=== PATIENT | male | born 1980 | race Two or more races ===

== ENCOUNTER 2019-09-20 11:03 | Inpatient (IN) | payer SELFPAY ==
[~2019-09-20] VITALS: Ht 172.7 cm; Wt 90.7 kg
[2019-09-20] MEDS ORDERED: IV NORMAL SALINE 1000ML BAG 1,000 ML IV SCH (12:32)
[2019-09-20] MEDS ORDERED: FAMOTIDINE 20 MG/2 ML VIAL IVP ONE (12:45)
[2019-09-20] MEDS ORDERED: KETOROLAC 30 MG/ML VIAL. IV ONE (12:45)
[2019-09-20 12:51] LABS: BASO % 1 % (0-3); EOS % 1 % (0-3); HEMATOCRIT 35.4 % (39.0-53.0); HEMOGLOBIN 11.9 g/dL (13.0-17.5); LYMPH # 1.1 x10^3/uL (1.0-4.8); LYMPH % 16 % (24-48); MEAN CORPUSCULAR HEMOGLOBIN 28 pg (25-35); MEAN CORPUSCULAR HGB CONC 34 g/dL (31-37); MEAN CORPUSCULAR VOLUME 82 fL (79-100); MONO # 0.6 x10^3/uL (0.0-1.1); MONO % 8 % (0-9); NEUT # 5.1 x10^3/uL (1.8-7.7); NEUT % 75 % (31-73); PLATELET COUNT 307 x10^3/uL (140-400); RED CELL DISTRIBUTION WIDTH 12.4 % (11.5-14.5); WHITE BLOOD COUNT 6.9 x10^3/uL (4.0-11.0)
[2019-09-20 12:51] LABS: BILIRUBIN,URINE NEGATIVE (NEG); CLARITY,URINE CLEAR; COLOR,URINE AMBER; NITRITE,URINE NEGATIVE (NEG); PROTEIN,URINE NEGATIVE (NEG-TRACE)
[2019-09-20 13:02] LABS: CALCIUM 9.2 mg/dL (8.5-10.1); CREATININE 0.8 mg/dL (0.7-1.3); GFR 108.8; POTASSIUM 3.9 mmol/L (3.5-5.1)
[2019-09-20 13:08] LABS: ALBUMIN 3.4 g/dL (3.4-5.0); ALBUMIN/GLOBULIN RATIO 0.8 (1.0-1.7); TOTAL BILIRUBIN 0.5 mg/dL (0.2-1.0); TOTAL PROTEIN 7.7 g/dL (6.4-8.2)
[2019-09-20 13:09] LABS: BACTERIA,URINE 0 /HPF (0-FEW); RBC,URINE 0 /HPF (0-2); SQUAMOUS EPITHELIAL CELL,UR OCC /LPF; WBC,URINE OCC /HPF (0-4)
[2019-09-20] MEDS ORDERED: fentaNYL PF VIAL 100 MCG/2 ML VIAL IVP ONE (13:15)
--- NOTE | 2019-09-20 13:20 | PHYS DOC ---
Past Medical History Past Medical History: No Pertinent History Past Surgical History: No Surgical History Alcohol Use: None Drug Use: None Adult General Chief Complaint Chief Complaint: ABDOMINAL PAIN HPI HPI Patient is a 39 year old male patient without medical problem who presents with complaining of abdominal pain. Patient complaining of left upper quadrant pain as a constant and sharp pain for the last 4 days getting worse with movement and taking deep breaths. Patient rated his pain 10 over 10 and complaining of one episode of nausea yesterday without vomiting. Patient denies constipation and diarrhea, urinary symptoms, fever and chills, shortness of breath, injury, history of the same problem. Patient complaining of cough and nasal congestion for the last 4 days. Review of Systems Review of Systems Constitutional: Denies fever or chills [] Eyes: Denies change in visual acuity, redness, or eye pain [] HENT: Denies nasal congestion or sore throat [] Respiratory: Denies cough or shortness of breath [] Cardiovascular: No additional information not addressed in HPI [] GI: Reports abdominal pain, nausea, denies vomiting, bloody stools or diarrhea [] : Denies dysuria or hematuria [] Musculoskeletal: Denies back pain or joint pain [] Integument: Denies rash or skin lesions [] Neurologic: Denies headache, focal weakness or sensory changes [] Endocrine: Denies polyuria or polydipsia [] All other systems were reviewed and found to be within normal limits, except as documented in this note. Current Medications Current Medications Current Medications Medications (Trade) Dose Ordered Sig/Dali Start Time Stop Time Status Last Admin Dose Admin Famotidine (Pepcid Vial) 20 mg 1X ONCE 09/20/19 12:45 09/20/19 12:46 DC 09/20/19 13:01 20 MG Fentanyl Citrate (Fentanyl 2ml Vial) 50 mcg 1X ONCE 09/20/19 13:15 09/20/19 13:16 DC 09/20/19 13:36 50 MCG Ketorolac Tromethamine (Toradol 30mg Vial) 30 mg 1X ONCE 09/20/19 12:45 09/20/19 13:10 DC Sodium Chloride 1,000 ml @ 1,000 mls/hr Q1H 09/20/19 12:32 09/20/19 13:31 DC 09/20/19 13:00 1,000 MLS/HR Allergies Allergies Allergies Coded Allergies Type Severity Reaction Last Updated Verified No Known Drug Allergies 09/20/19 No Physical Exam Physical Exam Constitutional: Well developed, well nourished, mild distress, non-toxic appearance. [] HENT: Normocephalic, atraumatic, moist oral mucosa Eyes: PERRLA, EOMI, conjunctiva normal, no discharge. [] Neck: Normal range of motion, no tenderness, supple, no stridor. [] Cardiovascular:Heart rate regular rhythm, no murmur [] Lungs & Thorax: Bilateral breath sounds clear to auscultation [] Abdomen: Bowel sounds normal, soft, left upper quadrant tenderness and rebound tenderness with palpated mass in left side of abdomen. Skin: Warm, dry, no erythema, no rash. [] Back: No tenderness, no CVA tenderness. [] Extremities: No tenderness, no cyanosis, no clubbing, ROM intact, no edema. [] Neurologic: Alert and oriented X 3, no focal deficits noted. [] Psychologic: Affect normal, judgement normal, mood normal. [] Current Patient Data Vital Signs Vital Signs Date Time Temp Pulse Resp B/P (MAP) Pulse Ox O2 Delivery O2 Flow Rate FiO2 09/20/19 13:01 83 16 128/67 (87) 99 Room Air 09/20/19 11:57 98.3 98.3 Lab Values Laboratory Tests Test 09/20/19 12:25 09/20/19 12:41 White Blood Count 6.9 x10^3/uL (4.0-11.0) Red Blood Count 4.30 x10^6/uL (4.30-5.70) Hemoglobin 11.9 g/dL (13.0-17.5) L Hematocrit 35.4 % (39.0-53.0) L Mean Corpuscular Volume 82 fL (79-100) Mean Corpuscular Hemoglobin 28 pg (25-35) Mean Corpuscular Hemoglobin Concent 34 g/dL (31-37) Red Cell Distribution Width 12.4 % (11.5-14.5) Platelet Count 307 x10^3/uL (140-400) Neutrophils (%) (Auto) 75 % (31-73) H Lymphocytes (%) (Auto) 16 % (24-48) L Monocytes (%) (Auto) 8 % (0-9) Eosinophils (%) (Auto) 1 % (0-3) Basophils (%) (Auto) 1 % (0-3) Neutrophils # (Auto) 5.1 x10^3/uL (1.8-7.7) Lymphocytes # (Auto) 1.1 x10^3/uL (1.0-4.8) Monocytes # (Auto) 0.6 x10^3/uL (0.0-1.1) Eosinophils # (Auto) 0.0 x10^3/uL (0.0-0.7) Basophils # (Auto) 0.0 x10^3/uL (0.0-0.2) Sodium Level 141 mmol/L (136-145) Potassium Level 3.9 mmol/L (3.5-5.1) Chloride Level 102 mmol/L (98-107) Carbon Dioxide Level 31 mmol/L (21-32) Anion Gap 8 (6-14) Blood Urea Nitrogen 10 mg/dL (8-26) Creatinine 0.8 mg/dL (0.7-1.3) Estimated GFR (Cockcroft-Gault) 108.8 BUN/Creatinine Ratio 13 (6-20) Glucose Level 111 mg/dL (70-99) H Calcium Level 9.2 mg/dL (8.5-10.1) Total Bilirubin 0.5 mg/dL (0.2-1.0) Aspartate Amino Transferase (AST) 28 U/L (15-37) Alanine Aminotransferase (ALT) 54 U/L (16-63) Alkaline Phosphatase 95 U/L (46-116) Total Protein 7.7 g/dL (6.4-8.2) Albumin 3.4 g/dL (3.4-5.0) Albumin/Globulin Ratio 0.8 (1.0-1.7) L Lipase 64 U/L (73-393) L Urine Collection Type Void Urine Color Ellie Urine Clarity Clear Urine pH 6.0 Urine Specific Morris >=1.030 Urine Protein Negative mg/dL (NEG-TRACE) Urine Glucose (UA) Negative mg/dL (NEG) Urine Ketones (Stick) Trace mg/dL (NEG) Urine Blood Negative (NEG) Urine Nitrite Negative (NEG) Urine Bilirubin Negative (NEG) Urine Urobilinogen Dipstick 1.0 mg/dL (0.2 mg/dL) Urine Leukocyte Esterase Negative (NEG) Urine RBC 0 /HPF (0-2) Urine WBC Occ /HPF (0-4) Urine Squamous Epithelial Cells Occ /LPF Urine Bacteria 0 /HPF (0-FEW) Urine Mucus Mod /LPF Laboratory Tests 09/20/19 12:25 Laboratory Tests 09/20/19 12:25 EKG EKG [] Radiology/Procedures Radiology/Procedures [][facility] [address] [place] [address] IMAGING REPORT Signed PATIENT: RENU ALCARAZACCOUNT: [id number] : 1980 LOCATION: ER AGE: 39 SEX: M EXAM STATUS: REG ER ORD. PHYSICIAN: TREY HUERTA MD REASON: left upper quadrant pain PROCEDURE: CT ABDOMEN PELVIS WO CONTRAST CT STUDY OF THE ABDOMEN AND PELVIS WITHOUT CONTRAST CLINICAL INDICATIONS: Left upper quadrant abdominal pain. TECHNIQUE: Noncontrast helical CT scanning of the abdomen and pelvis was performed. Without contrast, the sensitivity to detect organ pathology and GI tract pathology is decreased. PQRS compliance Statement One or more of the following individualized dose reduction techniques were utilized for this study: 1. Automated exposure control 2. Adjustment of the mA and/or kV according to patient size 3. Use of iterative reconstruction technique COMPARISON: None available. FINDINGS: The liver and spleen and pancreas are unremarkable on this noncontrast study. The gallbladder is nondistended. No extrahepatic biliary ductal dilatation is seen. No adrenal mass is evident. Both kidneys are unremarkable on this noncontrast study and no hydronephrosis or hydroureter or ureteral stone is seen. Urinary bladder is nondistended. No focal aneurysmal dilatation of the abdominal aorta is seen. No enlarged retroperitoneal or pelvic lymphadenopathy is evident. The appendix is normal. The terminal ileum is unremarkable. No small bowel obstruction is seen. There is a large soft tissue mass of the left mid abdomen which displaces bowel loops around it. This mass has heterogeneous enhancement with multiple areas of cyst formation or cystic necrosis within it. The mass measures 17.5 cm transversely and 11.1 cm in AP dimension and 16.6 cm in vertical dimension. No free air or free fluid or mesenteric edema is seen. No lung base consolidation is evident. No lytic process is seen. IMPRESSION: Large intra-abdominal soft tissue mass of the left mid abdomen measuring up to 17.5 cm in greatest dimension consistent with a neoplastic process. No bowel obstruction. Electronically signed by: Ambar Gray MD (09/20/2019 1:17 PM) [facility] DICTATED and SIGNED BY: AMBAR GRAY MD DATE: 09/20/19 1319 Course & Med Decision Making Course & Med Decision Making Pertinent Labs and Imaging studies reviewed. (See chart for details) Evaluation of patient in ER showed 39-year-old male patient without medical problems presented to ER with complaining of left-sided abdominal pain for 4 days without other symptoms. Patient had tenderness and rebound tenderness of left upper quadrant with palpable. MS. CT showed large intra-abdominal mass with possible malignancy. Labs was unremarkable except for mild anemia. On-call surgeon Dr. Brown was informed at 1405. Patient and his informed about test results and plan of care.Patient requiring admission for further evaluation and treatment. Discussed with Dr. Fisher who is in agreement with admission. Discussed findings and plan with patient and family, who acknowledge understanding and agreement. Dragon Disclaimer Dragon Disclaimer This electronic medical record was generated, in whole or in part, using a voice recognition dictation system. Departure Departure Impression: Primary Impression: Abdominal mass, left upper quadrant Additional Impression: Anemia Disposition: ADMITTED INPATIENT (at 1500) Admitting Physician: CODY (Dr Fisher accepted admission at 1500) Condition: IMPROVED Referrals: NO PCP (PCP) Problem Qualifiers Additional Impression: Anemia Anemia type: unspecified type Qualified Codes: D64.9 - Anemia, unspecified TREY HUERTA MD Sep 20, 2019 13:20
[2019-09-20 14:30] VITALS: BP 142/77
[2019-09-20] MEDS ORDERED: ONDANSETRON PF 4 MG/2 ML VIAL. IV PRN (15:00)
[2019-09-20] MEDS: IV NORMAL SALINE 1000ML BAG 1,000 ML IV SCH ×2 (16:09→21:21)
[2019-09-20 19:30] VITALS: BP 131/81
--- NOTE | 2019-09-20 20:04 | HP ---
ADMIT DATE: 09/20/2019 CHIEF COMPLAINT: Abdominal pain. HISTORY OF PRESENT ILLNESS: The patient is a pleasant middle-aged healthy male who presents with abdominal pain, rates as a 7/10, it has been occurring for several days. He denies any weight loss. Denies any colon cancer in the family. He tried taking some [id number] meds, but that did not work. Food makes it worse. We did some imaging. He has got a 17-cm mass suspicious for a neoplasm. I discussed the case with ER physician. We are going to admit the patient and consult GI and General Surgery. PAST MEDICAL HISTORY: Benign. ALLERGIES: None. FAMILY HISTORY: Denies any family history of colon cancer. SOCIAL HISTORY: Does not drink, smoke, or take drugs. MEDICATIONS: Reviewed, please refer to the MRAD. REVIEW OF SYSTEMS: GENERAL: No history of weight change, weakness or fevers. SKIN: No bruising, hair changes or rashes. EYES: No blurred, double or loss of vision. NOSE AND THROAT: No history of nosebleeds, hoarseness or sore throat. HEART: No history of palpitations, chest pain or shortness of breath on exertion. LUNGS: Denies cough, hemoptysis, wheezing or shortness of breath. GASTROINTESTINAL: He complains of abdominal pain. GENITOURINARY: No history of frequency, urgency, hesitancy or nocturia. NEUROLOGIC: Denies history of numbness, tingling, tremor or weakness. PSYCHIATRIC: No history of panic, anxiety or depression. ENDOCRINE: No history of heat or cold intolerance, polyuria or polydipsia. EXTREMITIES: Denies muscle weakness, joint pain, pain on walking or stiffness. PHYSICAL EXAMINATION: VITALS: Within normal limits and are stable. GENERAL: No apparent distress. Alert and oriented. HEENT: Normal cephalic atraumatic, external auditory canals are patent EYES: Extraocular muscles are intact, pupils are equally round and reactive to light and accommodation MUSCULOSKELETAL: Well developed, well nourished, good range of motion ENDOCRINE: No thyromegaly was palpated LYMPHATICS: No cervical chain or axillary nodes were noted HEMATOPOIETIC: No bruising NECK: Supple, no JVD, no thyromegaly was noted. LUNGS: Clear to auscultation in all lung briggs without rhonchi or wheezing. HEART: RRR, S1, S2 present. Peripheral pulses intact, no obvious murmurs were noted. ABDOMEN: He has got some slight tenderness in the left upper quadrant. EXTREMITIES: Without any cyanosis, clubbing, or edema. Pedal pulses intact, Homans sign is negative. NEUROLOGIC: Normal speech, normal tone. A & O x3, moves all extremities, no obvious focal deficits. PSYCHIATRIC: Normal affect, normal mood. Stable. SKIN: No ulcerations or rashes, good skin turgor, no jaundice. VASCULAR: Good capillary refill, neurovascular bundle appears to be intact. LABORATORY DATA: Hemoglobin is 11.9. Electrolytes are normal. Urinalysis is negative. IMAGING STUDIES: CT of the abdomen shows a 17-cm mass suspicious for neoplasm. ASSESSMENT AND PLAN: The patient will be admitted. We will consult Dr. Brown. Check a CEA level. Consult Dr. Baldwin. Home meds, DVT prophylaxis. Full code. IV fluids, n.p.o. after midnight. ANJALI CORONADO DO DR: JUSTIN/tone JOB#: [id number] / [id number]
[2019-09-20] MEDS: fentaNYL PF VIAL 100 MCG/2 ML VIAL IV PRN (21:20)
[2019-09-20 23:30] VITALS: BP 106/51
[2019-09-21] VITALS (10 sets, daily range): BP systolic 109–122; BP diastolic 59–73
[2019-09-21] MEDS: fentaNYL PF VIAL 100 MCG/2 ML VIAL IV PRN (02:03)
[2019-09-21] MEDS: IV NORMAL SALINE 1000ML BAG 1,000 ML IV SCH ×2 (04:45→11:00)
[2019-09-21] MEDS: fentaNYL PF VIAL 100 MCG/2 ML VIAL IVP PRN ×4 (06:13→20:07)
--- NOTE | 2019-09-21 08:22 | PDOC2 ---
CONSULT Date of Consult Date of Consult DATE: 09/21/19 TIME: 08:18 Reason for Consult Reason for Consult: abdominal mass Referring Physician Referring Physician: er Identification/Chief Complaint Chief Complaint abdominal pain Source Source: Caregiver, Chart review History of Present Illness Reason for Visit: Pt spouse assists in interpretation for patient. Developed LUQ pain about 5 days ago, yesterday it became significantly worse. Denies n/v, no diarrhea. Eating normally Past Medical History Past Medical History no pertinent hx Past Surgical History Past Surgical History: No pertinent history Family History Family History: Other (no pertinent hx ) Social History No ALCOHOL: none Drugs: None Lives: with Family Current Problem List Problem List Problems Medical Problems: (1) Abdominal mass, left upper quadrant Status: Acute (2) Anemia Status: Acute Current Medications Current Medications Current Medications Sodium Chloride 1,000 ml @ 1,000 mls/hr Q1H IV Last administered on 09/20/19at 13:00; Start 09/20/19 at 12:32; Stop 09/20/19 at 13:31; Status DC Famotidine (Pepcid Vial) 20 mg 1X ONCE IVP Last administered on 09/20/19at 13:01; Start 09/20/19 at 12:45; Stop 09/20/19 at 12:46; Status DC Ketorolac Tromethamine (Toradol 30mg Vial) 30 mg 1X ONCE IV ; Start 09/20/19 at 12:45; Stop 09/20/19 at 13:10; Status DC Fentanyl Citrate (Fentanyl 2ml Vial) 50 mcg 1X ONCE IVP Last administered on 09/20/19at 13:36; Start 09/20/19 at 13:15; Stop 09/20/19 at 13:16; Status DC Ondansetron HCl (Zofran) 4 mg PRN Q8HRS PRN IV NAUSEA/VOMITING; Start 09/20/19 at 15:00; Stop 09/20/19 at 22:00; Status DC Fentanyl Citrate (Fentanyl 2ml Vial) 50 mcg PRN Q2HRS PRN IV PAIN Last administered on 09/21/19at 02:03; Start 09/20/19 at 15:00; Stop 09/21/19 at 02:20; Status DC Sodium Chloride 1,000 ml @ 150 mls/hr Q6H40M IV Last administered on 09/21/19at 04:45; Start 09/20/19 at 15:00; Stop 09/21/19 at 14:59 Fentanyl Citrate (Fentanyl 2ml Vial) 75 mcg PRN Q2HR PRN IVP MODERATE PAIN 4-6 Last administered on 09/21/19at 06:13; Start 09/21/19 at 02:30 Fentanyl Citrate (Fentanyl 2ml Vial) 100 mcg PRN Q2HR PRN IVP SEVERE PAIN 7-10; Start 09/21/19 at 02:30 Allergies Allergies: Coded Allergies: No Known Drug Allergies (Unverified , 09/20/19) ROS General: YES: Night Sweats; No: Other (fevers ) PSYCHOLOGICAL ROS: No: Anxiety, Depression Eyes: No Blurry vision, No Double vision HEENT: No: Heacaches Hematological and Lymphatic: No: Bleeding Problems, Blood Clots Respiratory: No: Cough, Shortness of breath Cardiovascular: No Chest Pain, No Palpitations Gastrointestinal: Yes Other (see hpi) Genitourinary: No Dysuria, No Hematuria Musculoskeletal: No Joint Pain, No Muscle Pain Neurological: No Impaired Coord/balance, No Numbness/Tingling Skin: No Pruritus, No Rash Physical Exam General: Alert, Oriented X3, Cooperative, No acute distress HEENT: PERRLA, Mucous membr. moist/pink Lungs: Clear to auscultation, Normal air movement Heart: Regular rate, Normal S1, Normal S2, No murmurs Abdomen: Soft, Other (LUQ TTP, firmness to Left abdomen on exam) Extremities: No clubbing, No cyanosis Skin: No rashes, No breakdown Neuro: Normal gait, Normal speech Psych/Mental Status: Mental status NL, Mood NL MUSCULOSKELETAL: No deformity, No swelling Vitals VITALS Vital Signs Date Time Temp Pulse Resp B/P (MAP) Pulse Ox O2 Delivery O2 Flow Rate FiO2 09/21/19 06:55 Room Air 09/21/19 03:18 99.0 90 18 113/64 (80) 96 99.0 Labs Labs Laboratory Tests Test 09/20/19 12:25 09/20/19 12:41 White Blood Count 6.9 x10^3/uL (4.0-11.0) Red Blood Count 4.30 x10^6/uL (4.30-5.70) Hemoglobin 11.9 g/dL (13.0-17.5) Hematocrit 35.4 % (39.0-53.0) Mean Corpuscular Volume 82 fL (79-100) Mean Corpuscular Hemoglobin 28 pg (25-35) Mean Corpuscular Hemoglobin Concent 34 g/dL (31-37) Red Cell Distribution Width 12.4 % (11.5-14.5) Platelet Count 307 x10^3/uL (140-400) Neutrophils (%) (Auto) 75 % (31-73) Lymphocytes (%) (Auto) 16 % (24-48) Monocytes (%) (Auto) 8 % (0-9) Eosinophils (%) (Auto) 1 % (0-3) Basophils (%) (Auto) 1 % (0-3) Neutrophils # (Auto) 5.1 x10^3/uL (1.8-7.7) Lymphocytes # (Auto) 1.1 x10^3/uL (1.0-4.8) Monocytes # (Auto) 0.6 x10^3/uL (0.0-1.1) Eosinophils # (Auto) 0.0 x10^3/uL (0.0-0.7) Basophils # (Auto) 0.0 x10^3/uL (0.0-0.2) Sodium Level 141 mmol/L (136-145) Potassium Level 3.9 mmol/L (3.5-5.1) Chloride Level 102 mmol/L (98-107) Carbon Dioxide Level 31 mmol/L (21-32) Anion Gap 8 (6-14) Blood Urea Nitrogen 10 mg/dL (8-26) Creatinine 0.8 mg/dL (0.7-1.3) Estimated GFR (Cockcroft-Gault) 108.8 BUN/Creatinine Ratio 13 (6-20) Glucose Level 111 mg/dL (70-99) Calcium Level 9.2 mg/dL (8.5-10.1) Total Bilirubin 0.5 mg/dL (0.2-1.0) Aspartate Amino Transf (AST/SGOT) 28 U/L (15-37) Alanine Aminotransferase (ALT/SGPT) 54 U/L (16-63) Alkaline Phosphatase 95 U/L (46-116) Total Protein 7.7 g/dL (6.4-8.2) Albumin 3.4 g/dL (3.4-5.0) Albumin/Globulin Ratio 0.8 (1.0-1.7) Lipase 64 U/L (73-393) Urine Collection Type Void Urine Color Ellie Urine Clarity Clear Urine pH 6.0 Urine Specific [place] >=1.030 Urine Protein Negative mg/dL (NEG-TRACE) Urine Glucose (UA) Negative mg/dL (NEG) Urine Ketones (Stick) Trace mg/dL (NEG) Urine Blood Negative (NEG) Urine Nitrite Negative (NEG) Urine Bilirubin Negative (NEG) Urine Urobilinogen Dipstick 1.0 mg/dL (0.2 mg/dL) Urine Leukocyte Esterase Negative (NEG) Urine RBC 0 /HPF (0-2) Urine WBC Occ /HPF (0-4) Urine Squamous Epithelial Cells Occ /LPF Urine Bacteria 0 /HPF (0-FEW) Urine Mucus Mod /LPF Laboratory Tests Test 09/20/19 12:25 09/20/19 12:41 White Blood Count 6.9 x10^3/uL (4.0-11.0) Red Blood Count 4.30 x10^6/uL (4.30-5.70) Hemoglobin 11.9 g/dL (13.0-17.5) Hematocrit 35.4 % (39.0-53.0) Mean Corpuscular Volume 82 fL (79-100) Mean Corpuscular Hemoglobin 28 pg (25-35) Mean Corpuscular Hemoglobin Concent 34 g/dL (31-37) Red Cell Distribution Width 12.4 % (11.5-14.5) Platelet Count 307 x10^3/uL (140-400) Neutrophils (%) (Auto) 75 % (31-73) Lymphocytes (%) (Auto) 16 % (24-48) Monocytes (%) (Auto) 8 % (0-9) Eosinophils (%) (Auto) 1 % (0-3) Basophils (%) (Auto) 1 % (0-3) Neutrophils # (Auto) 5.1 x10^3/uL (1.8-7.7) Lymphocytes # (Auto) 1.1 x10^3/uL (1.0-4.8) Monocytes # (Auto) 0.6 x10^3/uL (0.0-1.1) Eosinophils # (Auto) 0.0 x10^3/uL (0.0-0.7) Basophils # (Auto) 0.0 x10^3/uL (0.0-0.2) Sodium Level 141 mmol/L (136-145) Potassium Level 3.9 mmol/L (3.5-5.1) Chloride Level 102 mmol/L (98-107) Carbon Dioxide Level 31 mmol/L (21-32) Anion Gap 8 (6-14) Blood Urea Nitrogen 10 mg/dL (8-26) Creatinine 0.8 mg/dL (0.7-1.3) Estimated GFR (Cockcroft-Gault) 108.8 BUN/Creatinine Ratio 13 (6-20) Glucose Level 111 mg/dL (70-99) Calcium Level 9.2 mg/dL (8.5-10.1) Total Bilirubin 0.5 mg/dL (0.2-1.0) Aspartate Amino Transf (AST/SGOT) 28 U/L (15-37) Alanine Aminotransferase (ALT/SGPT) 54 U/L (16-63) Alkaline Phosphatase 95 U/L (46-116) Total Protein 7.7 g/dL (6.4-8.2) Albumin 3.4 g/dL (3.4-5.0) Albumin/Globulin Ratio 0.8 (1.0-1.7) Lipase 64 U/L (73-393) Urine Collection Type Void Urine Color Ellie Urine Clarity Clear Urine pH 6.0 Urine Specific [place] >=1.030 Urine Protein Negative mg/dL (NEG-TRACE) Urine Glucose (UA) Negative mg/dL (NEG) Urine Ketones (Stick) Trace mg/dL (NEG) Urine Blood Negative (NEG) Urine Nitrite Negative (NEG) Urine Bilirubin Negative (NEG) Urine Urobilinogen Dipstick 1.0 mg/dL (0.2 mg/dL) Urine Leukocyte Esterase Negative (NEG) Urine RBC 0 /HPF (0-2) Urine WBC Occ /HPF (0-4) Urine Squamous Epithelial Cells Occ /LPF Urine Bacteria 0 /HPF (0-FEW) Urine Mucus Mod /LPF Assessment/Plan Assessment/Plan abdominal mass will review with Dr Brown, likely require surgery today MACKENZIE JENKINS APRN Sep 21, 2019 08:22
--- NOTE | 2019-09-21 09:36 | PDOC2 ---
GI CONSULT Reason For Consult: ?colon ca HPI: HPI: 39 y/o Swedish-speaking male, translation by significant other in room. 1 month ago had some LUQ discomfort after moving a ladder, then developed a bruise in the mid abdomen. Was seen at a clinic and was told "it's okay." Pain resolved. Pain recurred yesterday after moving another ladder - much worse. Imaging shows mass in left abdomen. Oncology consult pending. Surgery has seen - ?to OR today. Denies fevers/sweats, reflux/heartburn, dysphagia, n/v, diarrhea, constipation, weight loss, change in appetite, and bleeding. No previous EGD or colonoscopy. No GB, liver, pancreas, or PUD history. No NSAIDs. PMH: PMH: denies FH: Family History: No pertinent hx (denies cancers) Social History: Smoke: No ALCOHOL: none Drugs: None ROS: GEN: Denies fevers, chills, sweats HEENT: Denies blurred vision, sore throat CV: Denies chest pain RESP: Denies shortness of air, cough GI: Per HPI : Denies hematuria, dysuria ENDO: Denies weight changes NEURO: Denies confusion, dizziness MSK: Denies weakness, joint pain/swelling SKIN: Denies jaundice, pruritus Vitals: Vitals: Vital Signs Date Time Temp Pulse Resp B/P (MAP) Pulse Ox O2 Delivery O2 Flow Rate FiO2 09/21/19 08:51 Room Air 09/21/19 07:00 97.8 83 16 121/73 (89) 97 97.8 Labs: Labs: Laboratory Tests Test 09/20/19 12:25 09/20/19 12:41 White Blood Count 6.9 x10^3/uL (4.0-11.0) Red Blood Count 4.30 x10^6/uL (4.30-5.70) Hemoglobin 11.9 g/dL (13.0-17.5) Hematocrit 35.4 % (39.0-53.0) Mean Corpuscular Volume 82 fL (79-100) Mean Corpuscular Hemoglobin 28 pg (25-35) Mean Corpuscular Hemoglobin Concent 34 g/dL (31-37) Red Cell Distribution Width 12.4 % (11.5-14.5) Platelet Count 307 x10^3/uL (140-400) Neutrophils (%) (Auto) 75 % (31-73) Lymphocytes (%) (Auto) 16 % (24-48) Monocytes (%) (Auto) 8 % (0-9) Eosinophils (%) (Auto) 1 % (0-3) Basophils (%) (Auto) 1 % (0-3) Neutrophils # (Auto) 5.1 x10^3/uL (1.8-7.7) Lymphocytes # (Auto) 1.1 x10^3/uL (1.0-4.8) Monocytes # (Auto) 0.6 x10^3/uL (0.0-1.1) Eosinophils # (Auto) 0.0 x10^3/uL (0.0-0.7) Basophils # (Auto) 0.0 x10^3/uL (0.0-0.2) Sodium Level 141 mmol/L (136-145) Potassium Level 3.9 mmol/L (3.5-5.1) Chloride Level 102 mmol/L (98-107) Carbon Dioxide Level 31 mmol/L (21-32) Anion Gap 8 (6-14) Blood Urea Nitrogen 10 mg/dL (8-26) Creatinine 0.8 mg/dL (0.7-1.3) Estimated GFR (Cockcroft-Gault) 108.8 BUN/Creatinine Ratio 13 (6-20) Glucose Level 111 mg/dL (70-99) Calcium Level 9.2 mg/dL (8.5-10.1) Total Bilirubin 0.5 mg/dL (0.2-1.0) Aspartate Amino Transf (AST/SGOT) 28 U/L (15-37) Alanine Aminotransferase (ALT/SGPT) 54 U/L (16-63) Alkaline Phosphatase 95 U/L (46-116) Total Protein 7.7 g/dL (6.4-8.2) Albumin 3.4 g/dL (3.4-5.0) Albumin/Globulin Ratio 0.8 (1.0-1.7) Lipase 64 U/L (73-393) Urine Collection Type Void Urine Color Ellie Urine Clarity Clear Urine pH 6.0 Urine Specific [place] >=1.030 Urine Protein Negative mg/dL (NEG-TRACE) Urine Glucose (UA) Negative mg/dL (NEG) Urine Ketones (Stick) Trace mg/dL (NEG) Urine Blood Negative (NEG) Urine Nitrite Negative (NEG) Urine Bilirubin Negative (NEG) Urine Urobilinogen Dipstick 1.0 mg/dL (0.2 mg/dL) Urine Leukocyte Esterase Negative (NEG) Urine RBC 0 /HPF (0-2) Urine WBC Occ /HPF (0-4) Urine Squamous Epithelial Cells Occ /LPF Urine Bacteria 0 /HPF (0-FEW) Urine Mucus Mod /LPF Allergies: Coded Allergies: No Known Drug Allergies (Unverified , 09/20/19) Medications: Current Medications Medications (Trade) Dose Ordered Sig/Dali Route PRN Reason Start Time Stop Time Status Last Admin Dose Admin Sodium Chloride 1,000 ml @ 1,000 mls/hr Q1H IV 09/20/19 12:32 09/20/19 13:31 DC 09/20/19 13:00 Famotidine (Pepcid Vial) 20 mg 1X ONCE IVP 09/20/19 12:45 09/20/19 12:46 DC 09/20/19 13:01 Fentanyl Citrate (Fentanyl 2ml Vial) 50 mcg 1X ONCE IVP 09/20/19 13:15 09/20/19 13:16 DC 09/20/19 13:36 Fentanyl Citrate (Fentanyl 2ml Vial) 50 mcg PRN Q2HRS PRN IV PAIN 09/20/19 15:00 09/21/19 02:20 DC 09/21/19 02:03 Sodium Chloride 1,000 ml @ 150 mls/hr Q6H40M IV 09/20/19 15:00 09/21/19 14:59 09/21/19 04:45 Fentanyl Citrate (Fentanyl 2ml Vial) 75 mcg PRN Q2HR PRN IVP MODERATE PAIN 4-6 09/21/19 02:30 09/21/19 06:13 Fentanyl Citrate (Fentanyl 2ml Vial) 100 mcg PRN Q2HR PRN IVP SEVERE PAIN 7-10 09/21/19 02:30 09/21/19 08:51 Imaging: Imaging: CT A/P IMPRESSION: Large intra-abdominal soft tissue mass of the left mid abdomen measuring up to 17.5 cm in greatest dimension consistent with a neoplastic process. No bowel obstruction. PE: GEN: NAD HEENT: Atraumatic, PERRL LUNGS: CTAB HEART: RRR ABD: NABS, some firmness over LUQ, discomfort there EXTREMITY: No edema SKIN: No rashes, no jaundice NEURO/PSYCH: A & O 3 A/P: A/P: LUQ pain Anemia Abdominal mass -- ?biopsy - ?plans for OR Will follow. KEVIN WILSON Sep 21, 2019 09:36
[2019-09-21] MEDS ORDERED: IV RINGERS,LACTATED 1000ML 1,000 ML IV SCH (09:48)
[2019-09-21] MEDS ORDERED: MORPHINE SULFATE 2 MG/ML VIAL. IV PRN ×2 (10:00→15:00)
[2019-09-21] MEDS ORDERED: PROCHLORPERAZINE 10 MG/2 ML VIAL. IV PRN (10:00)
[2019-09-21] MEDS ORDERED: ONDANSETRON PF 4 MG/2 ML VIAL. IV PRN ×2 (10:00→15:00)
[2019-09-21] MEDS ORDERED: fentaNYL PF VIAL 100 MCG/2 ML VIAL IV PRN ×2 (10:00)
--- NOTE | 2019-09-21 10:18 | PDOC ---
PROGRESS NOTES History of Present Illness History of Present Illness impression CT of the abdomen shows a 17-cm mass suspicious for neoplasm. Large intra- abdominal soft tissue mass of the left mid abdomen measuring up to 17.5 cm in greatest dimension consistent with a neoplastic process. No bowel obstruction. obesity dehydration PLAN: admitted. consult Dr. Brown. CEA level. Consult Dr. Baldwin. Home meds, DVT prophylaxis. Full code. IV fluids, 38 MIN PT EXAM, CHART REVIEW, > 50% OF TIME SPENT WITH EXAM, CHART REVIEW, PT CARE COORDINATION Operative Note dr brown Operative Note Date: 09/21/2019 Preoperative diagnosis abdominal mass Postoperative diagnosis same Procedure: Exploratory laparotomy with resection of large abdominal mass Surgeon: Kevin Specimen: Abdominal mass Dictation: Patient is a 39-year-old male is mated to the hospital with abdominal pain CT scan findings showed a large 17 x 20 cm mass within the abdomen Vitals Vitals Vital Signs Date Time Temp Pulse Resp B/P (MAP) Pulse Ox O2 Delivery O2 Flow Rate FiO2 09/21/19 08:51 Room Air 09/21/19 07:00 97.8 83 16 121/73 (89) 97 97.8 Physical Exam General: Alert, Oriented X3, Cooperative, moderate distress Heart: Regular rate, Normal S1, Normal S2, No murmurs Lungs: Clear Abdomen: Soft, Other (LUQ TTP, firmness to Left abdomen on exam) Extremities: No clubbing, No cyanosis Skin: No rashes, No breakdown Labs LABS Operative Note Date: 09/21/2019 Preoperative diagnosis abdominal mass Postoperative diagnosis same Procedure: Exploratory laparotomy with resection of large abdominal mass Surgeon: Kevin Specimen: Abdominal mass Dictation: Patient is a 39-year-old male is mated to the hospital with abdominal pain CT scan findings showed a large 17 x 20 cm mass within the abdomen. Procedure of exploratory laparotomy with resection mass was explained to the patient detail risk benefits were also discussed including bleeding infection injury to intra-abdominal contents possibly necessitating further operations alternatives to this procedure also discussed with the patient thr ough an grounds person seemed to understand and gave both verbal and written consent to have the procedure performed. Patient was taken to the operating room placed in supine position general anesthesia was initiated once patient was sleep and intubated his abdomen was prepped and draped usual sterile fashion using ChloraPrep. Midline incision was made from above the umbilicus to just above the pubic symphysis this is carried down through the subcutaneous tissues are cauterized hemostasis down to the fascia fashion was opened with electrocautery the peritoneum further open electrocautery exposing the abdominal contents. The large cystic mass encountered upon entering the abdomen. This appeared to be generated from between the transverse colon and stomach with o mentum over the top of it and the posterior aspect bordered by the mesentery of the colon. The mass was brought up into the wound upon bringing it up into the wound of the cystic portion rupture who is a lot of old blood approximately a liter worth that was aspirated from the abdomen the mass was then removed using the impact LigaSure to take down its attachments there did not appear to be any specific attachment to any bowel or colon was a very small attachment to the stomach but it did not appear to involve tumor. Once the mass was removed a portion was sent for frozen section. Abdomen was irrigated and suctioned dry and did not appear to be any more bleeding this appeared to be contained within the cystic mass. The liver was felt there were no masses within the liver stomach appeared to be normal the small bowel was run from ligament of Treitz to the cecum jaw appeared to be normal the colon appeared normal from the cecum to the sigmoid colon. The abdomen was then closed with a running oh looped PDS the gaines bcutaneous layer was closed with a running 3-0 Vicryl and the skin was approximate for septic and a Monocryl Mastisol Steri-Strips and 4 x 4's Medipore tape were applied. Patient was awakened and extubated in the operating room taken to recovery in stable condition all sponge instrument needle counts listed as correct estimated blood loss 1600 mL. RITCHIE BROWN MD Sep 21, 2019 14:52 CT STUDY OF THE ABDOMEN AND PELVIS WITHOUT CONTRAST CLINICAL INDICATIONS: Left upper quadrant abdominal pain. TECHNIQUE: Noncontrast helical CT scanning of the abdomen and pelvis was performed. Without contrast, the sensitivity to detect organ pathology and GI tract pathology is decreased. PQRS compliance Statement One or more of the following individualized dose reduction techniques were utilized for this study: 1. Automated exposure control 2. Adjustment of the mA and/or kV according to patient size 3. Use of iterative reconstruction technique COMPARISON: None available. FINDINGS: The liver and spleen and pancreas are unremarkable on this noncontrast study. The gallbladder is nondistended. No extrahepatic biliary ductal dilatation is seen. No adrenal mass is evident. Both kidneys are unremarkable on this noncontrast study and no hydronephrosis or hydroureter or ureteral stone is seen. Urinary bladder is nondistended. No focal aneurysmal dilatation of the abdominal aorta is seen. No enlarged retroperitoneal or pelvic lymphadenopathy is evident. The appendix is normal. The terminal ileum is unremarkable. No small bowel obstruction is seen. There is a large soft tissue mass of the left mid abdomen which displaces bowel loops around it. This mass has heterogeneous enhancement with multiple areas of cyst formation or cystic necrosis within it. The mass measures 17.5 cm transversely and 11.1 cm in AP dimension and 16.6 cm in vertical dimension. No free air or free fluid or mesenteric edema is seen. No lung base consolidation is evident. No lytic process is seen. IMPRESSION: Large intra-abdominal soft tissue mass of the left mid abdomen measuring up to 17.5 cm in greatest dimension consistent with a neoplastic process. No bowel obstruction. Electronically signed by: Ambar Gray MD (09/20/2019 1:17 PM) [facility] DICTATED and SIGNED BY: AMBAR GRAY MD Laboratory Tests Test 09/20/19 12:25 09/20/19 12:41 White Blood Count 6.9 x10^3/uL (4.0-11.0) Red Blood Count 4.30 x10^6/uL (4.30-5.70) Hemoglobin 11.9 g/dL (13.0-17.5) Hematocrit 35.4 % (39.0-53.0) Mean Corpuscular Volume 82 fL (79-100) Mean Corpuscular Hemoglobin 28 pg (25-35) Mean Corpuscular Hemoglobin Concent 34 g/dL (31-37) Red Cell Distribution Width 12.4 % (11.5-14.5) Platelet Count 307 x10^3/uL (140-400) Neutrophils (%) (Auto) 75 % (31-73) Lymphocytes (%) (Auto) 16 % (24-48) Monocytes (%) (Auto) 8 % (0-9) Eosinophils (%) (Auto) 1 % (0-3) Basophils (%) (Auto) 1 % (0-3) Neutrophils # (Auto) 5.1 x10^3/uL (1.8-7.7) Lymphocytes # (Auto) 1.1 x10^3/uL (1.0-4.8) Monocytes # (Auto) 0.6 x10^3/uL (0.0-1.1) Eosinophils # (Auto) 0.0 x10^3/uL (0.0-0.7) Basophils # (Auto) 0.0 x10^3/uL (0.0-0.2) Sodium Level 141 mmol/L (136-145) Potassium Level 3.9 mmol/L (3.5-5.1) Chloride Level 102 mmol/L (98-107) Carbon Dioxide Level 31 mmol/L (21-32) Anion Gap 8 (6-14) Blood Urea Nitrogen 10 mg/dL (8-26) Creatinine 0.8 mg/dL (0.7-1.3) Estimated GFR (Cockcroft-Gault) 108.8 BUN/Creatinine Ratio 13 (6-20) Glucose Level 111 mg/dL (70-99) Calcium Level 9.2 mg/dL (8.5-10.1) Total Bilirubin 0.5 mg/dL (0.2-1.0) Aspartate Amino Transf (AST/SGOT) 28 U/L (15-37) Alanine Aminotransferase (ALT/SGPT) 54 U/L (16-63) Alkaline Phosphatase 95 U/L (46-116) Total Protein 7.7 g/dL (6.4-8.2) Albumin 3.4 g/dL (3.4-5.0) Albumin/Globulin Ratio 0.8 (1.0-1.7) Lipase 64 U/L (73-393) Urine Collection Type Void Urine Color Ellie Urine Clarity Clear Urine pH 6.0 Urine Specific [place] >=1.030 Urine Protein Negative mg/dL (NEG-TRACE) Urine Glucose (UA) Negative mg/dL (NEG) Urine Ketones (Stick) Trace mg/dL (NEG) Urine Blood Negative (NEG) Urine Nitrite Negative (NEG) Urine Bilirubin Negative (NEG) Urine Urobilinogen Dipstick 1.0 mg/dL (0.2 mg/dL) Urine Leukocyte Esterase Negative (NEG) Urine RBC 0 /HPF (0-2) Urine WBC Occ /HPF (0-4) Urine Squamous Epithelial Cells Occ /LPF Urine Bacteria 0 /HPF (0-FEW) Urine Mucus Mod /LPF Assessment and Plan Assessmemt and Plan Problems Medical Problems: (1) Abdominal mass, left upper quadrant Status: Acute (2) Anemia Status: Acute Comment Review of Relevant I have reviewed the following items amee (where applicable) has been applied. Labs Laboratory Tests Test 09/20/19 12:25 09/20/19 12:41 White Blood Count 6.9 x10^3/uL (4.0-11.0) Red Blood Count 4.30 x10^6/uL (4.30-5.70) Hemoglobin 11.9 g/dL (13.0-17.5) Hematocrit 35.4 % (39.0-53.0) Mean Corpuscular Volume 82 fL (79-100) Mean Corpuscular Hemoglobin 28 pg (25-35) Mean Corpuscular Hemoglobin Concent 34 g/dL (31-37) Red Cell Distribution Width 12.4 % (11.5-14.5) Platelet Count 307 x10^3/uL (140-400) Neutrophils (%) (Auto) 75 % (31-73) Lymphocytes (%) (Auto) 16 % (24-48) Monocytes (%) (Auto) 8 % (0-9) Eosinophils (%) (Auto) 1 % (0-3) Basophils (%) (Auto) 1 % (0-3) Neutrophils # (Auto) 5.1 x10^3/uL (1.8-7.7) Lymphocytes # (Auto) 1.1 x10^3/uL (1.0-4.8) Monocytes # (Auto) 0.6 x10^3/uL (0.0-1.1) Eosinophils # (Auto) 0.0 x10^3/uL (0.0-0.7) Basophils # (Auto) 0.0 x10^3/uL (0.0-0.2) Sodium Level 141 mmol/L (136-145) Potassium Level 3.9 mmol/L (3.5-5.1) Chloride Level 102 mmol/L (98-107) Carbon Dioxide Level 31 mmol/L (21-32) Anion Gap 8 (6-14) Blood Urea Nitrogen 10 mg/dL (8-26) Creatinine 0.8 mg/dL (0.7-1.3) Estimated GFR (Cockcroft-Gault) 108.8 BUN/Creatinine Ratio 13 (6-20) Glucose Level 111 mg/dL (70-99) Calcium Level 9.2 mg/dL (8.5-10.1) Total Bilirubin 0.5 mg/dL (0.2-1.0) Aspartate Amino Transf (AST/SGOT) 28 U/L (15-37) Alanine Aminotransferase (ALT/SGPT) 54 U/L (16-63) Alkaline Phosphatase 95 U/L (46-116) Total Protein 7.7 g/dL (6.4-8.2) Albumin 3.4 g/dL (3.4-5.0) Albumin/Globulin Ratio 0.8 (1.0-1.7) Lipase 64 U/L (73-393) Urine Collection Type Void Urine Color Ellie Urine Clarity Clear Urine pH 6.0 Urine Specific [place] >=1.030 Urine Protein Negative mg/dL (NEG-TRACE) Urine Glucose (UA) Negative mg/dL (NEG) Urine Ketones (Stick) Trace mg/dL (NEG) Urine Blood Negative (NEG) Urine Nitrite Negative (NEG) Urine Bilirubin Negative (NEG) Urine Urobilinogen Dipstick 1.0 mg/dL (0.2 mg/dL) Urine Leukocyte Esterase Negative (NEG) Urine RBC 0 /HPF (0-2) Urine WBC Occ /HPF (0-4) Urine Squamous Epithelial Cells Occ /LPF Urine Bacteria 0 /HPF (0-FEW) Urine Mucus Mod /LPF Laboratory Tests Test 09/20/19 12:25 09/20/19 12:41 White Blood Count 6.9 x10^3/uL (4.0-11.0) Red Blood Count 4.30 x10^6/uL (4.30-5.70) Hemoglobin 11.9 g/dL (13.0-17.5) Hematocrit 35.4 % (39.0-53.0) Mean Corpuscular Volume 82 fL (79-100) Mean Corpuscular Hemoglobin 28 pg (25-35) Mean Corpuscular Hemoglobin Concent 34 g/dL (31-37) Red Cell Distribution Width 12.4 % (11.5-14.5) Platelet Count 307 x10^3/uL (140-400) Neutrophils (%) (Auto) 75 % (31-73) Lymphocytes (%) (Auto) 16 % (24-48) Monocytes (%) (Auto) 8 % (0-9) Eosinophils (%) (Auto) 1 % (0-3) Basophils (%) (Auto) 1 % (0-3) Neutrophils # (Auto) 5.1 x10^3/uL (1.8-7.7) Lymphocytes # (Auto) 1.1 x10^3/uL (1.0-4.8) Monocytes # (Auto) 0.6 x10^3/uL (0.0-1.1) Eosinophils # (Auto) 0.0 x10^3/uL (0.0-0.7) Basophils # (Auto) 0.0 x10^3/uL (0.0-0.2) Sodium Level 141 mmol/L (136-145) Potassium Level 3.9 mmol/L (3.5-5.1) Chloride Level 102 mmol/L (98-107) Carbon Dioxide Level 31 mmol/L (21-32) Anion Gap 8 (6-14) Blood Urea Nitrogen 10 mg/dL (8-26) Creatinine 0.8 mg/dL (0.7-1.3) Estimated GFR (Cockcroft-Gault) 108.8 BUN/Creatinine Ratio 13 (6-20) Glucose Level 111 mg/dL (70-99) Calcium Level 9.2 mg/dL (8.5-10.1) Total Bilirubin 0.5 mg/dL (0.2-1.0) Aspartate Amino Transf (AST/SGOT) 28 U/L (15-37) Alanine Aminotransferase (ALT/SGPT) 54 U/L (16-63) Alkaline Phosphatase 95 U/L (46-116) Total Protein 7.7 g/dL (6.4-8.2) Albumin 3.4 g/dL (3.4-5.0) Albumin/Globulin Ratio 0.8 (1.0-1.7) Lipase 64 U/L (73-393) Urine Collection Type Void Urine Color Ellie Urine Clarity Clear Urine pH 6.0 Urine Specific [place] >=1.030 Urine Protein Negative mg/dL (NEG-TRACE) Urine Glucose (UA) Negative mg/dL (NEG) Urine Ketones (Stick) Trace mg/dL (NEG) Urine Blood Negative (NEG) Urine Nitrite Negative (NEG) Urine Bilirubin Negative (NEG) Urine Urobilinogen Dipstick 1.0 mg/dL (0.2 mg/dL) Urine Leukocyte Esterase Negative (NEG) Urine RBC 0 /HPF (0-2) Urine WBC Occ /HPF (0-4) Urine Squamous Epithelial Cells Occ /LPF Urine Bacteria 0 /HPF (0-FEW) Urine Mucus Mod /LPF Medications Current Medications Sodium Chloride 1,000 ml @ 1,000 mls/hr Q1H IV Last administered on 09/20/19at 13:00; Start 09/20/19 at 12:32; Stop 09/20/19 at 13:31; Status DC Famotidine (Pepcid Vial) 20 mg 1X ONCE IVP Last administered on 09/20/19at 13:01; Start 09/20/19 at 12:45; Stop 09/20/19 at 12:46; Status DC Ketorolac Tromethamine (Toradol 30mg Vial) 30 mg 1X ONCE IV ; Start 09/20/19 at 12:45; Stop 09/20/19 at 13:10; Status DC Fentanyl Citrate (Fentanyl 2ml Vial) 50 mcg 1X ONCE IVP Last administered on 09/20/19at 13:36; Start 09/20/19 at 13:15; Stop 09/20/19 at 13:16; Status DC Ondansetron HCl (Zofran) 4 mg PRN Q8HRS PRN IV NAUSEA/VOMITING; Start 09/20/19 at 15:00; Stop 09/20/19 at 22:00; Status DC Fentanyl Citrate (Fentanyl 2ml Vial) 50 mcg PRN Q2HRS PRN IV PAIN Last administered on 09/21/19at 02:03; Start 09/20/19 at 15:00; Stop 09/21/19 at 02:20; Status DC Sodium Chloride 1,000 ml @ 150 mls/hr Q6H40M IV Last administered on 09/21/19at 04:45; Start 09/20/19 at 15:00; Stop 09/21/19 at 14:59 Fentanyl Citrate (Fentanyl 2ml Vial) 75 mcg PRN Q2HR PRN IVP MODERATE PAIN 4-6 Last administered on 09/21/19at 06:13; Start 09/21/19 at 02:30 Fentanyl Citrate (Fentanyl 2ml Vial) 100 mcg PRN Q2HR PRN IVP SEVERE PAIN 7-10 Last administered on 09/21/19at 08:51; Start 09/21/19 at 02:30 Ondansetron HCl (Zofran) 4 mg PRN Q6HRS PRN IV NAUSEA/VOMITING; Start 09/21/19 at 10:00; Stop 09/22/19 at 09:59 Fentanyl Citrate (Fentanyl 2ml Vial) 25 mcg PRN Q5MIN PRN IV MILD PAIN 1-3; Start 09/21/19 at 10:00; Stop 09/22/19 at 09:59 Fentanyl Citrate (Fentanyl 2ml Vial) 50 mcg PRN Q5MIN PRN IV MODERATE TO SEVERE PAIN; Start 09/21/19 at 10:00; Stop 09/22/19 at 09:59 Morphine Sulfate (Morphine Sulfate) 1 mg PRN Q10MIN PRN IV SEVERE PAIN 7-10; Start 09/21/19 at 10:00; Stop 09/22/19 at 09:59 Ringer's Solution 1,000 ml @ 30 mls/hr Q24H IV ; Start 09/21/19 at 09:48; Stop 09/21/19 at 21:47 Hydromorphone HCl (Dilaudid) 0.5 mg PRN Q10MIN PRN IV SEV PAIN, Second choice; Start 09/21/19 at 10:00; Stop 09/22/19 at 09:59 Prochlorperazine Edisylate (Compazine) 5 mg PACU PRN PRN IV NAUSEA, MRX1; Start 09/21/19 at 10:00; Stop 09/22/19 at 09:59 Vitals/I & O Vital Sign - Last 24 Hours 09/20/19 09/20/19 09/20/19 09/20/19 11:57 13:01 14:22 14:30 Temp 98.3 98.3 98.3 98.3 Pulse 84 83 77 74 Resp 16 16 16 16 B/P (MAP) 128/73 (91) 128/67 (87) 129/75 (93) 142/77 (98) Pulse Ox 96 99 97 97 O2 Delivery Room Air Room Air Room Air Room Air 09/20/19 09/20/19 09/20/19 09/20/19 19:30 20:00 21:20 21:50 Temp 99.1 99.1 Pulse 95 Resp 18 B/P (MAP) 131/81 (98) Pulse Ox 98 O2 Delivery Room Air Room Air Room Air Room Air 09/20/19 09/21/19 09/21/19 09/21/19 23:30 02:03 03:18 06:13 Temp 99.1 99.0 99.1 99.0 Pulse 87 90 Resp 18 18 B/P (MAP) 106/51 (69) 113/64 (80) Pulse Ox 95 96 O2 Delivery Room Air Room Air Room Air Room Air 09/21/19 09/21/19 09/21/19 06:55 07:00 08:51 Temp 97.8 97.8 Pulse 83 Resp 16 B/P (MAP) 121/73 (89) Pulse Ox 97 O2 Delivery Room Air Room Air Room Air Intake and Output 09/20/19 09/20/19 09/21/19 15:00 23:00 07:00 Intake Total 1000 ml Balance 1000 ml RITCHIE PRATT MD Sep 21, 2019 10:18
--- NOTE | 2019-09-21 11:27 | NUR ---
SS following for discharge planning. SS reviewed pt chart. Pt is self pay pt. [facility] following for self pay status. Pt is from home and is currently on room air. SS will continue to follow for discharge planning.
[2019-09-21] MEDS ORDERED: fentaNYL PF VIAL 250 MCG/5 ML VIAL ONE (11:45)
[2019-09-21] MEDS ORDERED: MIDAZOLAM HCL/PF 2 MG/2 ML VIAL. ONE (11:45)
[2019-09-21] MEDS ORDERED: ROCURONIUM 100 MG/10 ML VIAL. ONE (11:45)
[2019-09-21] MEDS ORDERED: ONDANSETRON PF 4 MG/2 ML VIAL. ONE (11:46)
[2019-09-21] MEDS ORDERED: DEXAMETHASONE SOD PHOS 20 MG/5 ML VIAL. ONE (11:46)
[2019-09-21] MEDS ORDERED: PROPOFOL 20 ML IV ONE (11:46)
[2019-09-21] MEDS ORDERED: LIDOCAINE 2% PF 5 ML VIAL. ONE ×2 (11:46→15:10)
[2019-09-21] MEDS ORDERED: NEOSTIGMINE METHYLSULFATE 5 MG/5 ML SYRINGE. ONE (14:37)
[2019-09-21] MEDS ORDERED: GLYCOPYRROLATE 1 MG/5 ML VIAL. ONE (14:37)
[2019-09-21 14:44] LABS: HEMATOCRIT 28.2 % (39.0-53.0); HEMOGLOBIN 9.5 g/dL (13.0-17.5)
--- NOTE | 2019-09-21 14:52 | PDOC4 ---
Operative Note Operative Note Date: 09/21/2019 Preoperative diagnosis abdominal mass Postoperative diagnosis same Procedure: Exploratory laparotomy with resection of large abdominal mass Surgeon: Kevin Specimen: Abdominal mass Dictation: Patient is a 39-year-old male is mated to the hospital with abdominal pain CT scan findings showed a large 17 x 20 cm mass within the abdomen. Procedure of exploratory laparotomy with resection mass was explained to the patient detail risk benefits were also discussed including bleeding infection injury to intra-abdominal contents possibly necessitating further operations alternatives to this procedure also discussed with the patient through an entry level sales consultant seemed to understand and gave both verbal and written consent to have the procedure performed. Patient was taken to the operating room placed in supine position general anesthesia was initiated once patient was sleep and intubated his abdomen was prepped and draped usual sterile fashion using ChloraPrep. Midline incision was made from above the umbilicus to just above the pubic symphysis this is carried down through the subcutaneous tissues are cauterized hemostasis down to the fascia fashion was opened with electrocautery the peritoneum further open electrocautery exposing the abdominal contents. The large cystic mass encountered upon entering the abdomen. This appeared to be generated from between the transverse colon and stomach with omentum over the top of it and the posterior aspect bordered by the mesentery of the colon. The mass was brought up into the wound upon bringing it up into the wound of the cystic portion rupture who is a lot of old blood approximately a liter worth that was aspirated from the abdomen the mass was then removed using the impact LigaSure to take down its attachments there did not appear to be any specific attachment to any bowel or colon was a very small attachment to the stomach but it did not appear to involve tumor. Once the mass was removed a portion was sent for frozen section. Abdomen was irrigated and suctioned dry and did not appear to be any more bleeding this appeared to be contained within the cystic mass. The liver was felt there were no masses within the liver stomach appeared to be normal the small bowel was run from ligament of Treitz to the cecum jaw appeared to be normal the colon appeared normal from the cecum to the sigmoid colon. The abdomen was then closed with a running oh looped PDS the subcutaneous layer was closed with a running 3-0 Vicryl and the skin was approximate for septic and a Monocryl Mastisol Steri-Strips and 4 x 4's Medipore tape were applied. Patient was awakened and extubated in the operating room taken to recovery in stable condition all sponge instrument needle counts listed as correct estimated blood loss 1600 mL. RITCHIE CASTELLANOS MD Sep 21, 2019 14:52
[2019-09-21] MEDS ORDERED: 0.9 % SODIUM CHLORIDE 10 ML DISP.SYRIN. IV PRN (15:00)
[2019-09-21] MEDS ORDERED: oxyCODONE/APAP 5/325 1 TAB TABLET PO PRN ×2 (15:00)
[2019-09-21] MEDS ORDERED: SEVOFLURANE > 120 MINUTES. IH ONE (15:09)
[2019-09-21] MEDS: HYDROmorphone 2 MG/ML VIAL IV PRN ×6 (15:50→21:26)
[2019-09-21] MEDS: IV DEXTROSE 5%-LACT RINGERS 1,000 ML IV SCH (16:00)
--- NOTE | 2019-09-21 16:27 | PDOC ---
Provider Note Provider Note Hem/Onc 1. Abdominal mass - surgery planned. See dictation [id number] ASHLIE ADAM MD Sep 21, 2019 16:27
[2019-09-21] MEDS: KETOROLAC 15 MG/ML VIAL. IVP SCH (17:37)
[2019-09-21] MEDS: cefOXitin SODIUM IV Push 1 GM VIAL. IVP SCH (17:37)
[2019-09-21 21:08] LABS: AFPT MARKER 5.1 ng/mL (0.0-8.3)
[2019-09-22] MEDS: fentaNYL PF VIAL 100 MCG/2 ML VIAL IVP PRN ×5 (00:10→21:02)
[2019-09-22] MEDS: KETOROLAC 15 MG/ML VIAL. IVP SCH ×4 (00:11→17:56)
[2019-09-22] MEDS: IV DEXTROSE 5%-LACT RINGERS 1,000 ML IV SCH ×2 (02:00→12:58)
[2019-09-22] MEDS: cefOXitin SODIUM IV Push 1 GM VIAL. IVP SCH ×2 (02:00→09:57)
[2019-09-22 03:00] VITALS: BP 115/62
--- NOTE | 2019-09-22 03:36 | CONS ---
DATE OF CONSULTATION: 09/21/2019 MEDICAL ONCOLOGY CONSULTATION REQUESTING PHYSICIAN: Adriana Fisher DO REASON FOR CONSULTATION: Abdominal mass. HISTORY OF PRESENT ILLNESS: The patient is a 39-year-old gentleman, who has had left upper quadrant abdominal pain of one month duration that prompted him to go to the Emergency Room on 09/20/2019. He has had a bruise in the mid abdomen that resolved. He was evaluated at the clinic for that. He denies loss of weight or loss of appetite. No fevers, chills, or night sweats. No hematemesis, melena, or hematochezia. No hemoptysis or hematuria. No change in bowel habits, nausea, or vomiting. No history of testicular masses. He underwent a CT scan of the abdomen and pelvis on 09/20/2019 that revealed a large intra-abdominal soft tissue mass of the left mid abdomen measuring 17.5 cm consistent with a neoplastic process. No evidence of enlarged retroperitoneal or pelvic lymphadenopathy. There are multiple areas of cyst formation or cystic necrosis within the mass. Overall, the mass measures 17.5 x 11.1 x 16.6 cm. PAST MEDICAL HISTORY: No significant past medical history. FAMILY HISTORY: Negative for malignancy. SOCIAL HISTORY: No smoking or alcohol abuse. REVIEW OF SYSTEMS: A 12-point review of system was performed. Pertinent positives are mentioned in the history of present illness. Rest of the system review is negative. PHYSICAL EXAMINATION: GENERAL APPEARANCE: The patient is a 39-year-old gentleman, who is in no acute cardiorespiratory distress. VITAL SIGNS: Blood pressure 123/74 and temperature 97.3. HEENT: Atraumatic, normocephalic. EYES: No icterus. NECK: Supple. CHEST: Bilaterally symmetrical. No crepitations or rhonchi heard. HEART: S1, S2 normal. ABDOMEN: Soft. Abdominal masses noted in the left side of his abdomen, measures at least 15 cm vertically and 10 cm horizontally palpable below the left rib cage extending down just below the level of the umbilicus. CENTRAL NERVOUS SYSTEM: No focal deficits. LYMPHATICS: No lymphadenopathy. SKIN: No rashes. GENITOURINARY: Reveals no evidence of testicular masses. PSYCHOLOGIC: Mood and affect are appropriate. LABORATORY DATA: WBC 6.9, hemoglobin 11.9, and platelet count 307. Creatinine 0.8. IMPRESSION AND PLAN: 1. Abdominal mass noted on CT scan of the abdomen and pelvis on 09/20/2019 measuring 17.5 x 11.1 x 16.6 cm. There is evidence of cystic areas for cystic necrosis within the mass. There is no evidence of retroperitoneal or pelvic lymphadenopathy. On examination, there is no evidence of testicular masses. There is no evidence of palpable lymphadenopathy on examination. Since the patient is symptomatic, he was evaluated by Surgery with plans to proceed with surgery today. 2. Anemia, likely due to underlying malignancy. Continue to monitor hemoglobin p.r.n. ASHLIE ADAM MD DR: SHAYLA/tone JOB#: [id number] / [id number] [place]
[2019-09-22 07:00] VITALS: BP 125/57
[2019-09-22 07:13] LABS: BASO % 0 % (0-3); EOS % 0 % (0-3); HEMATOCRIT 24.6 % (39.0-53.0); HEMOGLOBIN 8.4 g/dL (13.0-17.5); LYMPH # 0.6 x10^3/uL (1.0-4.8); LYMPH % 9 % (24-48); MEAN CORPUSCULAR HEMOGLOBIN 28 pg (25-35); MEAN CORPUSCULAR HGB CONC 34 g/dL (31-37); MEAN CORPUSCULAR VOLUME 82 fL (79-100); MONO # 0.5 x10^3/uL (0.0-1.1); MONO % 7 % (0-9); NEUT % 85 % (31-73); PLATELET COUNT 291 x10^3/uL (140-400); RED BLOOD COUNT 3.02 x10^6/uL (4.30-5.70); RED CELL DISTRIBUTION WIDTH 12.3 % (11.5-14.5)
[2019-09-22 07:21] LABS: ALBUMIN 2.5 g/dL (3.4-5.0); ALBUMIN/GLOBULIN RATIO 0.7 (1.0-1.7); CALCIUM 8.7 mg/dL (8.5-10.1); CREATININE 0.7 mg/dL (0.7-1.3); GFR 126.9; POTASSIUM 4.1 mmol/L (3.5-5.1); TOTAL BILIRUBIN 0.4 mg/dL (0.2-1.0); TOTAL PROTEIN 6.3 g/dL (6.4-8.2)
[2019-09-22] MEDS ORDERED: PANTOPRAZOLE IV PUSH 40 MG VIAL. IVP ONE (09:00)
--- NOTE | 2019-09-22 09:40 | PDOC ---
SURGICAL PROGRESS NOTE Subjective Patient doing well complains of some incisional tenderness no nausea no flatus Vital Signs Vital Signs Date Time Temp Pulse Resp B/P (MAP) Pulse Ox O2 Delivery O2 Flow Rate FiO2 09/22/19 07:00 98.6 98 16 125/57 (79) 96 Room Air 98.6 09/22/19 05:42 2.0 I&O Intake and Output 09/22/19 07:00 Intake Total 3250 ml Output Total 2800 ml Balance 450 ml Intake IV Total 3250 ml Output Urine Total 1200 ml Estimated Blood Loss 1600 ml PATIENT HAS A KNAPP: Yes General: Alert, Oriented X3, Cooperative, mild distress Abdomen: Soft, Other (mild incisional tenderness wounds clean dry and intact more output from NG tube) Labs Laboratory Tests Test 09/20/19 12:25 09/20/19 12:41 09/21/19 10:00 09/21/19 12:25 White Blood Count 6.9 x10^3/uL (4.0-11.0) Red Blood Count 4.30 x10^6/uL (4.30-5.70) Hemoglobin 11.9 g/dL (13.0-17.5) Hematocrit 35.4 % (39.0-53.0) Mean Corpuscular Volume 82 fL (79-100) Mean Corpuscular Hemoglobin 28 pg (25-35) Mean Corpuscular Hemoglobin Concent 34 g/dL (31-37) Red Cell Distribution Width 12.4 % (11.5-14.5) Platelet Count 307 x10^3/uL (140-400) Neutrophils (%) (Auto) 75 % (31-73) Lymphocytes (%) (Auto) 16 % (24-48) Monocytes (%) (Auto) 8 % (0-9) Eosinophils (%) (Auto) 1 % (0-3) Basophils (%) (Auto) 1 % (0-3) Neutrophils # (Auto) 5.1 x10^3/uL (1.8-7.7) Lymphocytes # (Auto) 1.1 x10^3/uL (1.0-4.8) Monocytes # (Auto) 0.6 x10^3/uL (0.0-1.1) Eosinophils # (Auto) 0.0 x10^3/uL (0.0-0.7) Basophils # (Auto) 0.0 x10^3/uL (0.0-0.2) Sodium Level 141 mmol/L (136-145) Potassium Level 3.9 mmol/L (3.5-5.1) Chloride Level 102 mmol/L (98-107) Carbon Dioxide Level 31 mmol/L (21-32) Anion Gap 8 (6-14) Blood Urea Nitrogen 10 mg/dL (8-26) Creatinine 0.8 mg/dL (0.7-1.3) Estimated GFR (Cockcroft-Gault) 108.8 BUN/Creatinine Ratio 13 (6-20) Glucose Level 111 mg/dL (70-99) Calcium Level 9.2 mg/dL (8.5-10.1) Total Bilirubin 0.5 mg/dL (0.2-1.0) Aspartate Amino Transf (AST/SGOT) 28 U/L (15-37) Alanine Aminotransferase (ALT/SGPT) 54 U/L (16-63) Alkaline Phosphatase 95 U/L (46-116) Total Protein 7.7 g/dL (6.4-8.2) Albumin 3.4 g/dL (3.4-5.0) Albumin/Globulin Ratio 0.8 (1.0-1.7) Lipase 64 U/L (73-393) Urine Collection Type Void Urine Color Ellie Urine Clarity Clear Urine pH 6.0 Urine Specific Procious >=1.030 Urine Protein Negative mg/dL (NEG-TRACE) Urine Glucose (UA) Negative mg/dL (NEG) Urine Ketones (Stick) Trace mg/dL (NEG) Urine Blood Negative (NEG) Urine Nitrite Negative (NEG) Urine Bilirubin Negative (NEG) Urine Urobilinogen Dipstick 1.0 mg/dL (0.2 mg/dL) Urine Leukocyte Esterase Negative (NEG) Urine RBC 0 /HPF (0-2) Urine WBC Occ /HPF (0-4) Urine Squamous Epithelial Cells Occ /LPF Urine Bacteria 0 /HPF (0-FEW) Urine Mucus Mod /LPF Tumor Marker Alpha Fetoprotein 5.1 ng/mL (0.0-8.3) Tumor Marker HCG <1 mIU/mL (0-3) Hepatitis B Surface Antigen Nonreactive (Nonreactive) Hepatitis B Core Total Antibody Nonreactive (Nonreactive) Test 12/6/19 14:15 09/22/19 06:20 Hemoglobin 9.5 g/dL (13.0-17.5) 8.4 g/dL (13.0-17.5) Hematocrit 28.2 % (39.0-53.0) 24.6 % (39.0-53.0) Mean Corpuscular Hemoglobin Concent 34 g/dL (31-37) 34 g/dL (31-37) White Blood Count 7.0 x10^3/uL (4.0-11.0) Red Blood Count 3.02 x10^6/uL (4.30-5.70) Mean Corpuscular Volume 82 fL (79-100) Mean Corpuscular Hemoglobin 28 pg (25-35) Red Cell Distribution Width 12.3 % (11.5-14.5) Platelet Count 291 x10^3/uL (140-400) Neutrophils (%) (Auto) 85 % (31-73) Lymphocytes (%) (Auto) 9 % (24-48) Monocytes (%) (Auto) 7 % (0-9) Eosinophils (%) (Auto) 0 % (0-3) Basophils (%) (Auto) 0 % (0-3) Neutrophils # (Auto) 6.0 x10^3/uL (1.8-7.7) Lymphocytes # (Auto) 0.6 x10^3/uL (1.0-4.8) Monocytes # (Auto) 0.5 x10^3/uL (0.0-1.1) Eosinophils # (Auto) 0.0 x10^3/uL (0.0-0.7) Basophils # (Auto) 0.0 x10^3/uL (0.0-0.2) Sodium Level 141 mmol/L (136-145) Potassium Level 4.1 mmol/L (3.5-5.1) Chloride Level 106 mmol/L (98-107) Carbon Dioxide Level 31 mmol/L (21-32) Anion Gap 4 (6-14) Blood Urea Nitrogen 9 mg/dL (8-26) Creatinine 0.7 mg/dL (0.7-1.3) Estimated GFR (Cockcroft-Gault) 126.9 BUN/Creatinine Ratio 13 (6-20) Glucose Level 157 mg/dL (70-99) Calcium Level 8.7 mg/dL (8.5-10.1) Total Bilirubin 0.4 mg/dL (0.2-1.0) Aspartate Amino Transf (AST/SGOT) 16 U/L (15-37) Alanine Aminotransferase (ALT/SGPT) 35 U/L (16-63) Alkaline Phosphatase 65 U/L (46-116) Total Protein 6.3 g/dL (6.4-8.2) Albumin 2.5 g/dL (3.4-5.0) Albumin/Globulin Ratio 0.7 (1.0-1.7) Laboratory Tests Test 09/21/19 10:00 09/21/19 12:25 09/21/19 14:15 09/22/19 06:20 Tumor Marker Alpha Fetoprotein 5.1 ng/mL (0.0-8.3) Tumor Marker HCG <1 mIU/mL (0-3) Hepatitis B Surface Antigen Nonreactive (Nonreactive) Hepatitis B Core Total Antibody Nonreactive (Nonreactive) Hemoglobin 9.5 g/dL (13.0-17.5) 8.4 g/dL (13.0-17.5) Hematocrit 28.2 % (39.0-53.0) 24.6 % (39.0-53.0) Mean Corpuscular Hemoglobin Concent 34 g/dL (31-37) 34 g/dL (31-37) White Blood Count 7.0 x10^3/uL (4.0-11.0) Red Blood Count 3.02 x10^6/uL (4.30-5.70) Mean Corpuscular Volume 82 fL (79-100) Mean Corpuscular Hemoglobin 28 pg (25-35) Red Cell Distribution Width 12.3 % (11.5-14.5) Platelet Count 291 x10^3/uL (140-400) Neutrophils (%) (Auto) 85 % (31-73) Lymphocytes (%) (Auto) 9 % (24-48) Monocytes (%) (Auto) 7 % (0-9) Eosinophils (%) (Auto) 0 % (0-3) Basophils (%) (Auto) 0 % (0-3) Neutrophils # (Auto) 6.0 x10^3/uL (1.8-7.7) Lymphocytes # (Auto) 0.6 x10^3/uL (1.0-4.8) Monocytes # (Auto) 0.5 x10^3/uL (0.0-1.1) Eosinophils # (Auto) 0.0 x10^3/uL (0.0-0.7) Basophils # (Auto) 0.0 x10^3/uL (0.0-0.2) Sodium Level 141 mmol/L (136-145) Potassium Level 4.1 mmol/L (3.5-5.1) Chloride Level 106 mmol/L (98-107) Carbon Dioxide Level 31 mmol/L (21-32) Anion Gap 4 (6-14) Blood Urea Nitrogen 9 mg/dL (8-26) Creatinine 0.7 mg/dL (0.7-1.3) Estimated GFR (Cockcroft-Gault) 126.9 BUN/Creatinine Ratio 13 (6-20) Glucose Level 157 mg/dL (70-99) Calcium Level 8.7 mg/dL (8.5-10.1) Total Bilirubin 0.4 mg/dL (0.2-1.0) Aspartate Amino Transf (AST/SGOT) 16 U/L (15-37) Alanine Aminotransferase (ALT/SGPT) 35 U/L (16-63) Alkaline Phosphatase 65 U/L (46-116) Total Protein 6.3 g/dL (6.4-8.2) Albumin 2.5 g/dL (3.4-5.0) Albumin/Globulin Ratio 0.7 (1.0-1.7) Problem List Problems Medical Problems: (1) Abdominal mass, left upper quadrant Status: Acute (2) Anemia Status: Acute Assessment/Plan Status post exporter laparotomy with resection of large abdominal mass Hemoglobin 8.5 hemodynamically stable Supportive care awaiting return of bowel function RITCHIE CASTELLANOS MD Sep 22, 2019 09:40
--- NOTE | 2019-09-22 10:24 | NUR ---
NGT and henley catheter removed at 1020, will await spontaneous voiding.
--- NOTE | 2019-09-22 10:32 | PDOC ---
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 KEep NPO, add PPI IVF while NPO labs may ambulate Vitals Vitals Vital Signs Date Time Temp Pulse Resp B/P (MAP) Pulse Ox O2 Delivery O2 Flow Rate FiO2 09/22/19 07:00 98.6 98 16 125/57 (79) 96 Room Air 98.6 09/22/19 05:42 2.0 Physical Exam General: Alert, Oriented X3, Cooperative, mild distress Heart: Regular rate, Normal S1, Normal S2, No murmurs Lungs: Clear Abdomen: Soft, Other (mild incisional tenderness wounds clean dry and intact more output from NG tube) Extremities: No clubbing, No cyanosis Skin: No rashes, No breakdown Labs LABS Laboratory Tests Test 09/21/19 12:25 09/21/19 14:15 09/22/19 06:20 Hepatitis B Surface Antigen Nonreactive (Nonreactive) Hepatitis B Core Total Antibody Nonreactive (Nonreactive) Hemoglobin 9.5 g/dL (13.0-17.5) 8.4 g/dL (13.0-17.5) Hematocrit 28.2 % (39.0-53.0) 24.6 % (39.0-53.0) Mean Corpuscular Hemoglobin Concent 34 g/dL (31-37) 34 g/dL (31-37) White Blood Count 7.0 x10^3/uL (4.0-11.0) Red Blood Count 3.02 x10^6/uL (4.30-5.70) Mean Corpuscular Volume 82 fL (79-100) Mean Corpuscular Hemoglobin 28 pg (25-35) Red Cell Distribution Width 12.3 % (11.5-14.5) Platelet Count 291 x10^3/uL (140-400) Neutrophils (%) (Auto) 85 % (31-73) Lymphocytes (%) (Auto) 9 % (24-48) Monocytes (%) (Auto) 7 % (0-9) Eosinophils (%) (Auto) 0 % (0-3) Basophils (%) (Auto) 0 % (0-3) Neutrophils # (Auto) 6.0 x10^3/uL (1.8-7.7) Lymphocytes # (Auto) 0.6 x10^3/uL (1.0-4.8) Monocytes # (Auto) 0.5 x10^3/uL (0.0-1.1) Eosinophils # (Auto) 0.0 x10^3/uL (0.0-0.7) Basophils # (Auto) 0.0 x10^3/uL (0.0-0.2) Sodium Level 141 mmol/L (136-145) Potassium Level 4.1 mmol/L (3.5-5.1) Chloride Level 106 mmol/L (98-107) Carbon Dioxide Level 31 mmol/L (21-32) Anion Gap 4 (6-14) Blood Urea Nitrogen 9 mg/dL (8-26) Creatinine 0.7 mg/dL (0.7-1.3) Estimated GFR (Cockcroft-Gault) 126.9 BUN/Creatinine Ratio 13 (6-20) Glucose Level 157 mg/dL (70-99) Calcium Level 8.7 mg/dL (8.5-10.1) Total Bilirubin 0.4 mg/dL (0.2-1.0) Aspartate Amino Transf (AST/SGOT) 16 U/L (15-37) Alanine Aminotransferase (ALT/SGPT) 35 U/L (16-63) Alkaline Phosphatase 65 U/L (46-116) Total Protein 6.3 g/dL (6.4-8.2) Albumin 2.5 g/dL (3.4-5.0) Albumin/Globulin Ratio 0.7 (1.0-1.7) Review of Systems Review of Systems post op pain, all else is neg Assessment and Plan Assessmemt and Plan Problems Medical Problems: (1) Abdominal mass, left upper quadrant Status: Acute (2) Anemia Status: Acute Comment Review of Relevant I have reviewed the following items amee (where applicable) has been applied. Labs Laboratory Tests Test 09/20/19 12:25 09/20/19 12:41 09/21/19 10:00 09/21/19 12:25 White Blood Count 6.9 x10^3/uL (4.0-11.0) Red Blood Count 4.30 x10^6/uL (4.30-5.70) Hemoglobin 11.9 g/dL (13.0-17.5) Hematocrit 35.4 % (39.0-53.0) Mean Corpuscular Volume 82 fL (79-100) Mean Corpuscular Hemoglobin 28 pg (25-35) Mean Corpuscular Hemoglobin Concent 34 g/dL (31-37) Red Cell Distribution Width 12.4 % (11.5-14.5) Platelet Count 307 x10^3/uL (140-400) Neutrophils (%) (Auto) 75 % (31-73) Lymphocytes (%) (Auto) 16 % (24-48) Monocytes (%) (Auto) 8 % (0-9) Eosinophils (%) (Auto) 1 % (0-3) Basophils (%) (Auto) 1 % (0-3) Neutrophils # (Auto) 5.1 x10^3/uL (1.8-7.7) Lymphocytes # (Auto) 1.1 x10^3/uL (1.0-4.8) Monocytes # (Auto) 0.6 x10^3/uL (0.0-1.1) Eosinophils # (Auto) 0.0 x10^3/uL (0.0-0.7) Basophils # (Auto) 0.0 x10^3/uL (0.0-0.2) Sodium Level 141 mmol/L (136-145) Potassium Level 3.9 mmol/L (3.5-5.1) Chloride Level 102 mmol/L (98-107) Carbon Dioxide Level 31 mmol/L (21-32) Anion Gap 8 (6-14) Blood Urea Nitrogen 10 mg/dL (8-26) Creatinine 0.8 mg/dL (0.7-1.3) Estimated GFR (Cockcroft-Gault) 108.8 BUN/Creatinine Ratio 13 (6-20) Glucose Level 111 mg/dL (70-99) Calcium Level 9.2 mg/dL (8.5-10.1) Total Bilirubin 0.5 mg/dL (0.2-1.0) Aspartate Amino Transf (AST/SGOT) 28 U/L (15-37) Alanine Aminotransferase (ALT/SGPT) 54 U/L (16-63) Alkaline Phosphatase 95 U/L (46-116) Total Protein 7.7 g/dL (6.4-8.2) Albumin 3.4 g/dL (3.4-5.0) Albumin/Globulin Ratio 0.8 (1.0-1.7) Lipase 64 U/L (73-393) Urine Collection Type Void Urine Color Ellie Urine Clarity Clear Urine pH 6.0 Urine Specific [place] >=1.030 Urine Protein Negative mg/dL (NEG-TRACE) Urine Glucose (UA) Negative mg/dL (NEG) Urine Ketones (Stick) Trace mg/dL (NEG) Urine Blood Negative (NEG) Urine Nitrite Negative (NEG) Urine Bilirubin Negative (NEG) Urine Urobilinogen Dipstick 1.0 mg/dL (0.2 mg/dL) Urine Leukocyte Esterase Negative (NEG) Urine RBC 0 /HPF (0-2) Urine WBC Occ /HPF (0-4) Urine Squamous Epithelial Cells Occ /LPF Urine Bacteria 0 /HPF (0-FEW) Urine Mucus Mod /LPF Tumor Marker Alpha Fetoprotein 5.1 ng/mL (0.0-8.3) Tumor Marker HCG <1 mIU/mL (0-3) Hepatitis B Surface Antigen Nonreactive (Nonreactive) Hepatitis B Core Total Antibody Nonreactive (Nonreactive) Test 09/21/19 14:15 09/22/19 06:20 Hemoglobin 9.5 g/dL (13.0-17.5) 8.4 g/dL (13.0-17.5) Hematocrit 28.2 % (39.0-53.0) 24.6 % (39.0-53.0) Mean Corpuscular Hemoglobin Concent 34 g/dL (31-37) 34 g/dL (31-37) White Blood Count 7.0 x10^3/uL (4.0-11.0) Red Blood Count 3.02 x10^6/uL (4.30-5.70) Mean Corpuscular Volume 82 fL (79-100) Mean Corpuscular Hemoglobin 28 pg (25-35) Red Cell Distribution Width 12.3 % (11.5-14.5) Platelet Count 291 x10^3/uL (140-400) Neutrophils (%) (Auto) 85 % (31-73) Lymphocytes (%) (Auto) 9 % (24-48) Monocytes (%) (Auto) 7 % (0-9) Eosinophils (%) (Auto) 0 % (0-3) Basophils (%) (Auto) 0 % (0-3) Neutrophils # (Auto) 6.0 x10^3/uL (1.8-7.7) Lymphocytes # (Auto) 0.6 x10^3/uL (1.0-4.8) Monocytes # (Auto) 0.5 x10^3/uL (0.0-1.1) Eosinophils # (Auto) 0.0 x10^3/uL (0.0-0.7) Basophils # (Auto) 0.0 x10^3/uL (0.0-0.2) Sodium Level 141 mmol/L (136-145) Potassium Level 4.1 mmol/L (3.5-5.1) Chloride Level 106 mmol/L (98-107) Carbon Dioxide Level 31 mmol/L (21-32) Anion Gap 4 (6-14) Blood Urea Nitrogen 9 mg/dL (8-26) Creatinine 0.7 mg/dL (0.7-1.3) Estimated GFR (Cockcroft-Gault) 126.9 BUN/Creatinine Ratio 13 (6-20) Glucose Level 157 mg/dL (70-99) Calcium Level 8.7 mg/dL (8.5-10.1) Total Bilirubin 0.4 mg/dL (0.2-1.0) Aspartate Amino Transf (AST/SGOT) 16 U/L (15-37) Alanine Aminotransferase (ALT/SGPT) 35 U/L (16-63) Alkaline Phosphatase 65 U/L (46-116) Total Protein 6.3 g/dL (6.4-8.2) Albumin 2.5 g/dL (3.4-5.0) Albumin/Globulin Ratio 0.7 (1.0-1.7) Laboratory Tests Test 09/21/19 12:25 09/21/19 14:15 09/22/19 06:20 Hepatitis B Surface Antigen Nonreactive (Nonreactive) Hepatitis B Core Total Antibody Nonreactive (Nonreactive) Hemoglobin 9.5 g/dL (13.0-17.5) 8.4 g/dL (13.0-17.5) Hematocrit 28.2 % (39.0-53.0) 24.6 % (39.0-53.0) Mean Corpuscular Hemoglobin Concent 34 g/dL (31-37) 34 g/dL (31-37) White Blood Count 7.0 x10^3/uL (4.0-11.0) Red Blood Count 3.02 x10^6/uL (4.30-5.70) Mean Corpuscular Volume 82 fL (79-100) Mean Corpuscular Hemoglobin 28 pg (25-35) Red Cell Distribution Width 12.3 % (11.5-14.5) Platelet Count 291 x10^3/uL (140-400) Neutrophils (%) (Auto) 85 % (31-73) Lymphocytes (%) (Auto) 9 % (24-48) Monocytes (%) (Auto) 7 % (0-9) Eosinophils (%) (Auto) 0 % (0-3) Basophils (%) (Auto) 0 % (0-3) Neutrophils # (Auto) 6.0 x10^3/uL (1.8-7.7) Lymphocytes # (Auto) 0.6 x10^3/uL (1.0-4.8) Monocytes # (Auto) 0.5 x10^3/uL (0.0-1.1) Eosinophils # (Auto) 0.0 x10^3/uL (0.0-0.7) Basophils # (Auto) 0.0 x10^3/uL (0.0-0.2) Sodium Level 141 mmol/L (136-145) Potassium Level 4.1 mmol/L (3.5-5.1) Chloride Level 106 mmol/L (98-107) Carbon Dioxide Level 31 mmol/L (21-32) Anion Gap 4 (6-14) Blood Urea Nitrogen 9 mg/dL (8-26) Creatinine 0.7 mg/dL (0.7-1.3) Estimated GFR (Cockcroft-Gault) 126.9 BUN/Creatinine Ratio 13 (6-20) Glucose Level 157 mg/dL (70-99) Calcium Level 8.7 mg/dL (8.5-10.1) Total Bilirubin 0.4 mg/dL (0.2-1.0) Aspartate Amino Transf (AST/SGOT) 16 U/L (15-37) Alanine Aminotransferase (ALT/SGPT) 35 U/L (16-63) Alkaline Phosphatase 65 U/L (46-116) Total Protein 6.3 g/dL (6.4-8.2) Albumin 2.5 g/dL (3.4-5.0) Albumin/Globulin Ratio 0.7 (1.0-1.7) Medications Current Medications Sodium Chloride 1,000 ml @ 1,000 mls/hr Q1H IV Last administered on 09/20/19at 13:00; Start 09/20/19 at 12:32; Stop 09/20/19 at 13:31; Status DC Famotidine (Pepcid Vial) 20 mg 1X ONCE IVP Last administered on 09/20/19at 13:01; Start 09/20/19 at 12:45; Stop 09/20/19 at 12:46; Status DC Ketorolac Tromethamine (Toradol 30mg Vial) 30 mg 1X ONCE IV ; Start 09/20/19 at 12:45; Stop 09/20/19 at 13:10; Status DC Fentanyl Citrate (Fentanyl 2ml Vial) 50 mcg 1X ONCE IVP Last administered on 09/20/19at 13:36; Start 09/20/19 at 13:15; Stop 09/20/19 at 13:16; Status DC Ondansetron HCl (Zofran) 4 mg PRN Q8HRS PRN IV NAUSEA/VOMITING; Start 09/20/19 at 15:00; Stop 09/20/19 at 22:00; Status DC Fentanyl Citrate (Fentanyl 2ml Vial) 50 mcg PRN Q2HRS PRN IV PAIN Last administered on 09/21/19at 02:03; Start 09/20/19 at 15:00; Stop 09/21/19 at 02:20; Status DC Sodium Chloride 1,000 ml @ 150 mls/hr Q6H40M IV Last administered on 09/21/19at 04:45; Start 09/20/19 at 15:00; Stop 09/21/19 at 14:59; Status DC Fentanyl Citrate (Fentanyl 2ml Vial) 75 mcg PRN Q2HR PRN IVP MODERATE PAIN 4-6 Last administered on 09/21/19at 06:13; Start 09/21/19 at 02:30 Fentanyl Citrate (Fentanyl 2ml Vial) 100 mcg PRN Q2HR PRN IVP SEVERE PAIN 7-10 Last administered on 09/22/19at 05:42; Start 09/21/19 at 02:30 Ondansetron HCl (Zofran) 4 mg PRN Q6HRS PRN IV NAUSEA/VOMITING; Start 09/21/19 at 10:00; Stop 09/21/19 at 18:00; Status DC Fentanyl Citrate (Fentanyl 2ml Vial) 25 mcg PRN Q5MIN PRN IV MILD PAIN 1-3; Start 09/21/19 at 10:00; Stop 09/21/19 at 18:00; Status DC Fentanyl Citrate (Fentanyl 2ml Vial) 50 mcg PRN Q5MIN PRN IV MODERATE TO SEVERE PAIN; Start 09/21/19 at 10:00; Stop 09/21/19 at 18:00; Status DC Morphine Sulfate (Morphine Sulfate) 1 mg PRN Q10MIN PRN IV SEVERE PAIN 7-10; Start 09/21/19 at 10:00; Stop 09/21/19 at 18:00; Status DC Ringer's Solution 1,000 ml @ 30 mls/hr Q24H IV Last administered on 09/21/19at 11:45; Start 09/21/19 at 09:48; Stop 09/21/19 at 21:47; Status DC Hydromorphone HCl (Dilaudid) 0.5 mg PRN Q10MIN PRN IV SEV PAIN, Second choice Last administered on 09/21/19at 16:15; Start 09/21/19 at 10:00; Stop 09/21/19 at 18:00; Status DC Prochlorperazine Edisylate (Compazine) 5 mg PACU PRN PRN IV NAUSEA, MRX1; Start 09/21/19 at 10:00; Stop 09/21/19 at 18:00; Status DC Rocuronium [place] (Zemuron) 100 mg STK-MED ONCE .ROUTE ; Start 09/21/19 at 11:45; Stop 09/21/19 at 11:45; Status DC Midazolam HCl (Versed) 2 mg STK-MED ONCE .ROUTE ; Start 09/21/19 at 11:45; Stop 09/21/19 at 11:45; Status DC Fentanyl Citrate (Fentanyl 5ml Vial) 250 mcg STK-MED ONCE .ROUTE ; Start 09/21/19 at 11:45; Stop 09/21/19 at 11:45; Status DC Ondansetron HCl (Zofran) 4 mg STK-MED ONCE .ROUTE ; Start 09/21/19 at 11:46; Stop 09/21/19 at 11:46; Status DC Lidocaine HCl (Lidocaine Pf 2% Vial) 5 ml STK-MED ONCE .ROUTE ; Start 09/21/19 at 11:46; Stop 09/21/19 at 11:46; Status DC Propofol 20 ml @ As Directed STK-MED ONCE IV ; Start 09/21/19 at 11:46; Stop 09/21/19 at 11:46; Status DC Dexamethasone Sodium Phosphate (Decadron) 20 mg STK-MED ONCE .ROUTE ; Start 09/21/19 at 11:46; Stop 09/21/19 at 11:46; Status DC Cefazolin Sodium/ Dextrose 50 ml @ 100 mls/hr 1X ONCE IV Last administered on 09/21/19at 13:40; Start 09/21/19 at 13:30; Stop 09/21/19 at 13:59; Status DC Neostigmine Methylsulfate (Neostigmine Methylsulfate) 5 mg STK-MED ONCE .ROUTE ; Start 09/21/19 at 14:37; Stop 09/21/19 at 14:37; Status DC Glycopyrrolate (Robinul) 1 mg STK-MED ONCE .ROUTE ; Start 09/21/19 at 14:37; Stop 09/21/19 at 14:37; Status DC Cefoxitin Sodium (Mefoxin) 1 gm Q8H IVP Last administered on 09/22/19at 09:57; Start 09/21/19 at 18:00; Stop 09/22/19 at 10:01; Status DC Sodium Chloride (Normal Saline Flush) 3 ml QSHIFT PRN IV AFTER MEDS AND BLOOD DRAWS; Start 09/21/19 at 15:00 Morphine Sulfate (Morphine Sulfate) 2 mg PRN Q3HRS PRN IV PAIN, 2nd CHOICE Last administered on 09/21/19at 15:37; Start 09/21/19 at 15:00 Oxycodone/ Acetaminophen (Percocet 5/325) 1 tab PRN Q4HRS PRN PO MILD PAIN, 1ST CHOICE; Start 09/21/19 at 15:00 Oxycodone/ Acetaminophen (Percocet 5/325) 2 tab PRN Q4HRS PRN PO MODERATE PAIN, SEVERE PAIN; Start 09/21/19 at 15:00 Ketorolac Tromethamine (Toradol 15mg Vial) 15 mg Q6HRS IVP Last administered on 09/22/19at 05:41; Start 09/21/19 at 18:00; Stop 09/23/19 at 17:59 Ondansetron HCl (Zofran) 4 mg PRN Q6HRS PRN IV NAUSEA, 1ST CHOICE; Start 09/21/19 at 15:00 Dextrose/Lactated Ringer's 1,000 ml @ 75 mls/hr [id number] IV Last administered on 09/22/19at 02:00; Start 09/21/19 at 16:00 Sevoflurane (Ultane) 90 ml STK-MED ONCE IH ; Start 09/21/19 at 15:09; Stop 09/21/19 at 15:10; Status DC Lidocaine HCl (Lidocaine Pf 2% Vial) 5 ml STK-MED ONCE .ROUTE ; Start 09/21/19 at 15:10; Stop 09/21/19 at 15:10; Status DC Hydromorphone HCl (Dilaudid) 1.5 mg PRN Q3HRS PRN IV MODERATE TO SEVERE PAIN Last administered on 09/21/19at 21:26; Start 09/21/19 at 16:45 Pantoprazole Sodium (PROTONIX VIAL for IV PUSH) 40 mg 1X ONCE IVP Last administered on 09/22/19at 09:58; Start 09/22/19 at 09:00; Stop 09/22/19 at 09:01; Status DC Pantoprazole Sodium (PROTONIX VIAL for IV PUSH) 40 mg DAILYAC IVP ; Start 09/23/19 at 07:30 Vitals/I & O Vital Sign - Last 24 Hours 09/21/19 09/21/19 09/21/19 09/21/19 11:00 11:34 15:11 15:11 Temp 97.8 97.3 98.2 97.8 97.3 98.2 Pulse 79 86 77 Resp 16 17 20 B/P (MAP) 120/71 (87) 123/74 130/41 Pulse Ox 98 97 100 O2 Delivery Room Air Room Air Nasal Cannula Room Air O2 Flow Rate 4 4 09/21/19 09/21/19 09/21/19 09/21/19 15:25 15:33 15:37 15:40 Pulse 71 75 78 Resp 20 20 20 B/P (MAP) 130/73 122/68 (86) 125/68 Pulse Ox 100 95 100 100 O2 Delivery Nasal Cannula Nasal Cannula Nasal Cannula O2 Flow Rate 4 4.0 4 09/21/19 09/21/19 09/21/19 09/21/19 15:45 15:50 15:55 15:58 Pulse 73 72 Resp 18 18 18 B/P (MAP) 117/66 (83) 126/68 Pulse Ox 95 100 95 100 O2 Delivery Nasal Cannula Nasal Cannula Nasal Cannula O2 Flow Rate 4.0 2 2.0 09/21/19 09/21/19 09/21/19 09/21/19 16:00 16:07 16:07 16:08 Pulse 77 Resp 18 18 18 B/P (MAP) 112/69 (83) Pulse Ox 94 95 95 95 O2 Delivery Nasal Cannula Nasal Cannula Nasal Cannula O2 Flow Rate 2.0 2.0 2.0 09/21/19 09/21/19 09/21/19 09/21/19 16:10 16:10 16:15 16:15 Pulse 78 78 Resp 18 18 B/P (MAP) 127/66 117/63 (81) Pulse Ox 95 95 95 O2 Delivery Nasal Cannula Nasal Cannula Nasal Cannula O2 Flow Rate 2 2 2.0 09/21/19 09/21/19 09/21/19 09/21/19 16:30 16:42 17:12 18:00 Pulse 68 68 B/P (MAP) 112/71 (85) 111/59 (76) Pulse Ox 98 2 97 O2 Delivery Nasal Cannula Nasal Cannula 09/21/19 09/21/19 09/21/19 09/21/19 18:16 18:46 20:00 20:07 Pulse Ox 97 O2 Delivery Nasal Cannula Nasal Cannula Nasal Cannula Nasal Cannula O2 Flow Rate 2.0 2.0 2.0 2.0 09/21/19 09/21/19 09/21/19 09/21/19 20:40 21:26 22:00 23:00 Temp 98.6 98.6 Pulse 65 Resp 16 B/P (MAP) 109/65 (80) Pulse Ox 97 97 97 100 O2 Delivery Nasal Cannula Nasal Cannula Nasal Cannula Room Air O2 Flow Rate 2.0 2.0 2.0 09/22/19 09/22/19 09/22/19 09/22/19 00:10 03:00 05:42 07:00 Temp 98.6 98.6 98.6 98.6 Pulse 68 98 Resp 16 16 B/P (MAP) 115/62 (79) 125/57 (79) Pulse Ox 97 97 97 96 O2 Delivery Nasal Cannula Room Air Nasal Cannula Room Air O2 Flow Rate 2.0 2.0 Intake and Output 09/21/19 09/21/19 09/22/19 15:00 23:00 07:00 Intake Total 1000 ml 2250 ml Output Total 2350 ml 450 ml Balance 1000 ml -100 ml -450 ml JEAN PAYNE MD Sep 22, 2019 10:32
[2019-09-22 11:00] VITALS: BP 115/66
[2019-09-22 15:00] VITALS: BP 114/68
--- NOTE | 2019-09-22 18:01 | NUR ---
Patient spontaneously voided 480 ml of clear yellow urine at 1230 and 650ml at 1622. No new complaints noted, abdominal dressing clean, dry, and intact.
[2019-09-22 19:00] VITALS: BP 118/64
[2019-09-22 23:00] VITALS: BP 118/66
[2019-09-23] MEDS: KETOROLAC 15 MG/ML VIAL. IVP SCH ×3 (00:23→11:37)
[2019-09-23] MEDS: IV DEXTROSE 5%-LACT RINGERS 1,000 ML IV SCH ×2 (01:54→21:23)
[2019-09-23 03:00] VITALS: BP 117/76
[2019-09-23] MEDS: PANTOPRAZOLE IV PUSH 40 MG VIAL. IVP SCH (06:07)
[2019-09-23 07:00] VITALS: BP 131/75
--- NOTE | 2019-09-23 09:42 | PDOC ---
SURGICAL PROGRESS NOTE Subjective Patient feeling better today still complains of abdominal soreness. Denies any nausea has had some flatus no bowel movement Vital Signs Vital Signs Date Time Temp Pulse Resp B/P (MAP) Pulse Ox O2 Delivery O2 Flow Rate FiO2 09/23/19 08:00 Room Air 09/23/19 07:00 98.6 74 18 131/75 (93) 96 98.6 09/22/19 11:00 1.5 I&O Intake and Output 09/23/19 07:00 Intake Total 0 ml Output Total 1120 ml Balance -1120 ml Intake Oral 0 ml Output Urine Total 1120 ml # Voids 2 PATIENT HAS A KNAPP: No General: Alert, Oriented X3, Cooperative, mild distress Abdomen: Normal bowel sounds, Soft, Other (mild incisional tenderness wounds clean dry and intact) Labs Laboratory Tests Test 09/21/19 10:00 09/21/19 12:25 09/21/19 14:15 09/22/19 06:20 Tumor Marker Alpha Fetoprotein 5.1 ng/mL (0.0-8.3) Tumor Marker HCG <1 mIU/mL (0-3) Hepatitis B Surface Antigen Nonreactive (Nonreactive) Hepatitis B Core Total Antibody Nonreactive (Nonreactive) Hemoglobin 9.5 g/dL (13.0-17.5) 8.4 g/dL (13.0-17.5) Hematocrit 28.2 % (39.0-53.0) 24.6 % (39.0-53.0) Mean Corpuscular Hemoglobin Concent 34 g/dL (31-37) 34 g/dL (31-37) White Blood Count 7.0 x10^3/uL (4.0-11.0) Red Blood Count 3.02 x10^6/uL (4.30-5.70) Mean Corpuscular Volume 82 fL (79-100) Mean Corpuscular Hemoglobin 28 pg (25-35) Red Cell Distribution Width 12.3 % (11.5-14.5) Platelet Count 291 x10^3/uL (140-400) Neutrophils (%) (Auto) 85 % (31-73) Lymphocytes (%) (Auto) 9 % (24-48) Monocytes (%) (Auto) 7 % (0-9) Eosinophils (%) (Auto) 0 % (0-3) Basophils (%) (Auto) 0 % (0-3) Neutrophils # (Auto) 6.0 x10^3/uL (1.8-7.7) Lymphocytes # (Auto) 0.6 x10^3/uL (1.0-4.8) Monocytes # (Auto) 0.5 x10^3/uL (0.0-1.1) Eosinophils # (Auto) 0.0 x10^3/uL (0.0-0.7) Basophils # (Auto) 0.0 x10^3/uL (0.0-0.2) Sodium Level 141 mmol/L (136-145) Potassium Level 4.1 mmol/L (3.5-5.1) Chloride Level 106 mmol/L (98-107) Carbon Dioxide Level 31 mmol/L (21-32) Anion Gap 4 (6-14) Blood Urea Nitrogen 9 mg/dL (8-26) Creatinine 0.7 mg/dL (0.7-1.3) Estimated GFR (Cockcroft-Gault) 126.9 BUN/Creatinine Ratio 13 (6-20) Glucose Level 157 mg/dL (70-99) Calcium Level 8.7 mg/dL (8.5-10.1) Total Bilirubin 0.4 mg/dL (0.2-1.0) Aspartate Amino Transf (AST/SGOT) 16 U/L (15-37) Alanine Aminotransferase (ALT/SGPT) 35 U/L (16-63) Alkaline Phosphatase 65 U/L (46-116) Total Protein 6.3 g/dL (6.4-8.2) Albumin 2.5 g/dL (3.4-5.0) Albumin/Globulin Ratio 0.7 (1.0-1.7) Problem List Problems Medical Problems: (1) Abdominal mass, left upper quadrant Status: Acute (2) Anemia Status: Acute Assessment/Plan That is post-exploratory laparotomy with resection of large abdominal mass pathology pending Awaiting return of bowel function continue supportive care RITCHIE CASTELLANOS MD Sep 23, 2019 09:42
[2019-09-23 11:39] VITALS: BP 110/68
--- NOTE | 2019-09-23 11:41 | PDOC ---
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 liquid diet IVF to consume if more pO intake ambulate ad baron Vitals Vitals Vital Signs Date Time Temp Pulse Resp B/P (MAP) Pulse Ox O2 Delivery O2 Flow Rate FiO2 09/23/19 08:00 Room Air 09/23/19 07:00 98.6 74 18 131/75 (93) 96 98.6 09/22/19 11:00 1.5 Physical Exam General: Alert, Oriented X3, Cooperative, mild distress Heart: Regular rate, Normal S1, Normal S2, No murmurs Lungs: Clear Abdomen: Normal bowel sounds, Soft, Other (mild incisional tenderness wounds clean dry and intact) Extremities: No clubbing, No cyanosis Skin: No rashes, No breakdown Review of Systems Review of Systems postop pain, all else is neg Assessment and Plan Assessmemt and Plan Problems Medical Problems: (1) Abdominal mass, left upper quadrant Status: Acute (2) Anemia Status: Acute Comment Review of Relevant I have reviewed the following items amee (where applicable) has been applied. Labs Laboratory Tests Test 09/21/19 12:25 09/21/19 14:15 09/22/19 06:20 Hepatitis B Surface Antigen Nonreactive (Nonreactive) Hepatitis B Core Total Antibody Nonreactive (Nonreactive) Hemoglobin 9.5 g/dL (13.0-17.5) 8.4 g/dL (13.0-17.5) Hematocrit 28.2 % (39.0-53.0) 24.6 % (39.0-53.0) Mean Corpuscular Hemoglobin Concent 34 g/dL (31-37) 34 g/dL (31-37) White Blood Count 7.0 x10^3/uL (4.0-11.0) Red Blood Count 3.02 x10^6/uL (4.30-5.70) Mean Corpuscular Volume 82 fL (79-100) Mean Corpuscular Hemoglobin 28 pg (25-35) Red Cell Distribution Width 12.3 % (11.5-14.5) Platelet Count 291 x10^3/uL (140-400) Neutrophils (%) (Auto) 85 % (31-73) Lymphocytes (%) (Auto) 9 % (24-48) Monocytes (%) (Auto) 7 % (0-9) Eosinophils (%) (Auto) 0 % (0-3) Basophils (%) (Auto) 0 % (0-3) Neutrophils # (Auto) 6.0 x10^3/uL (1.8-7.7) Lymphocytes # (Auto) 0.6 x10^3/uL (1.0-4.8) Monocytes # (Auto) 0.5 x10^3/uL (0.0-1.1) Eosinophils # (Auto) 0.0 x10^3/uL (0.0-0.7) Basophils # (Auto) 0.0 x10^3/uL (0.0-0.2) Sodium Level 141 mmol/L (136-145) Potassium Level 4.1 mmol/L (3.5-5.1) Chloride Level 106 mmol/L (98-107) Carbon Dioxide Level 31 mmol/L (21-32) Anion Gap 4 (6-14) Blood Urea Nitrogen 9 mg/dL (8-26) Creatinine 0.7 mg/dL (0.7-1.3) Estimated GFR (Cockcroft-Gault) 126.9 BUN/Creatinine Ratio 13 (6-20) Glucose Level 157 mg/dL (70-99) Calcium Level 8.7 mg/dL (8.5-10.1) Total Bilirubin 0.4 mg/dL (0.2-1.0) Aspartate Amino Transf (AST/SGOT) 16 U/L (15-37) Alanine Aminotransferase (ALT/SGPT) 35 U/L (16-63) Alkaline Phosphatase 65 U/L (46-116) Total Protein 6.3 g/dL (6.4-8.2) Albumin 2.5 g/dL (3.4-5.0) Albumin/Globulin Ratio 0.7 (1.0-1.7) Medications Current Medications Sodium Chloride 1,000 ml @ 1,000 mls/hr Q1H IV Last administered on 09/20/19at 13:00; Start 09/20/19 at 12:32; Stop 09/20/19 at 13:31; Status DC Famotidine (Pepcid Vial) 20 mg 1X ONCE IVP Last administered on 09/20/19at 13:01; Start 09/20/19 at 12:45; Stop 09/20/19 at 12:46; Status DC Ketorolac Tromethamine (Toradol 30mg Vial) 30 mg 1X ONCE IV ; Start 09/20/19 at 12:45; Stop 09/20/19 at 13:10; Status DC Fentanyl Citrate (Fentanyl 2ml Vial) 50 mcg 1X ONCE IVP Last administered on 09/20/19at 13:36; Start 09/20/19 at 13:15; Stop 09/20/19 at 13:16; Status DC Ondansetron HCl (Zofran) 4 mg PRN Q8HRS PRN IV NAUSEA/VOMITING; Start 09/20/19 at 15:00; Stop 09/20/19 at 22:00; Status DC Fentanyl Citrate (Fentanyl 2ml Vial) 50 mcg PRN Q2HRS PRN IV PAIN Last administered on 09/21/19at 02:03; Start 09/20/19 at 15:00; Stop 09/21/19 at 02:20; Status DC Sodium Chloride 1,000 ml @ 150 mls/hr Q6H40M IV Last administered on 09/21/19at 04:45; Start 09/20/19 at 15:00; Stop 09/21/19 at 14:59; Status DC Fentanyl Citrate (Fentanyl 2ml Vial) 75 mcg PRN Q2HR PRN IVP MODERATE PAIN 4-6 Last administered on 09/22/19at 21:02; Start 09/21/19 at 02:30 Fentanyl Citrate (Fentanyl 2ml Vial) 100 mcg PRN Q2HR PRN IVP SEVERE PAIN 7-10 Last administered on 09/22/19at 16:34; Start 09/21/19 at 02:30 Ondansetron HCl (Zofran) 4 mg PRN Q6HRS PRN IV NAUSEA/VOMITING; Start 09/21/19 at 10:00; Stop 09/21/19 at 18:00; Status DC Fentanyl Citrate (Fentanyl 2ml Vial) 25 mcg PRN Q5MIN PRN IV MILD PAIN 1-3; Start 09/21/19 at 10:00; Stop 09/21/19 at 18:00; Status DC Fentanyl Citrate (Fentanyl 2ml Vial) 50 mcg PRN Q5MIN PRN IV MODERATE TO SEVERE PAIN; Start 09/21/19 at 10:00; Stop 09/21/19 at 18:00; Status DC Morphine Sulfate (Morphine Sulfate) 1 mg PRN Q10MIN PRN IV SEVERE PAIN 7-10; Start 09/21/19 at 10:00; Stop 09/21/19 at 18:00; Status DC Ringer's Solution 1,000 ml @ 30 mls/hr Q24H IV Last administered on 09/21/19at 11:45; Start 09/21/19 at 09:48; Stop 09/21/19 at 21:47; Status DC Hydromorphone HCl (Dilaudid) 0.5 mg PRN Q10MIN PRN IV SEV PAIN, Second choice Last administered on 09/21/19at 16:15; Start 09/21/19 at 10:00; Stop 09/21/19 at 18:00; Status DC Prochlorperazine Edisylate (Compazine) 5 mg PACU PRN PRN IV NAUSEA, MRX1; Start 09/21/19 at 10:00; Stop 09/21/19 at 18:00; Status DC Rocuronium [place] (Zemuron) 100 mg STK-MED ONCE .ROUTE ; Start 09/21/19 at 11:45; Stop 09/21/19 at 11:45; Status DC Midazolam HCl (Versed) 2 mg STK-MED ONCE .ROUTE ; Start 09/21/19 at 11:45; Stop 09/21/19 at 11:45; Status DC Fentanyl Citrate (Fentanyl 5ml Vial) 250 mcg STK-MED ONCE .ROUTE ; Start 09/21/19 at 11:45; Stop 09/21/19 at 11:45; Status DC Ondansetron HCl (Zofran) 4 mg STK-MED ONCE .ROUTE ; Start 09/21/19 at 11:46; Stop 09/21/19 at 11:46; Status DC Lidocaine HCl (Lidocaine Pf 2% Vial) 5 ml STK-MED ONCE .ROUTE ; Start 09/21/19 at 11:46; Stop 09/21/19 at 11:46; Status DC Propofol 20 ml @ As Directed STK-MED ONCE IV ; Start 09/21/19 at 11:46; Stop 09/21/19 at 11:46; Status DC Dexamethasone Sodium Phosphate (Decadron) 20 mg STK-MED ONCE .ROUTE ; Start 09/21/19 at 11:46; Stop 09/21/19 at 11:46; Status DC Cefazolin Sodium/ Dextrose 50 ml @ 100 mls/hr 1X ONCE IV Last administered on 09/21/19at 13:40; Start 09/21/19 at 13:30; Stop 09/21/19 at 13:59; Status DC Neostigmine Methylsulfate (Neostigmine Methylsulfate) 5 mg STK-MED ONCE .ROUTE ; Start 09/21/19 at 14:37; Stop 09/21/19 at 14:37; Status DC Glycopyrrolate (Robinul) 1 mg STK-MED ONCE .ROUTE ; Start 09/21/19 at 14:37; Stop 09/21/19 at 14:37; Status DC Cefoxitin Sodium (Mefoxin) 1 gm Q8H IVP Last administered on 09/22/19at 09:57; Start 09/21/19 at 18:00; Stop 09/22/19 at 10:01; Status DC Sodium Chloride (Normal Saline Flush) 3 ml QSHIFT PRN IV AFTER MEDS AND BLOOD DRAWS; Start 09/21/19 at 15:00 Morphine Sulfate (Morphine Sulfate) 2 mg PRN Q3HRS PRN IV PAIN, 2nd CHOICE Last administered on 09/21/19at 15:37; Start 09/21/19 at 15:00 Oxycodone/ Acetaminophen (Percocet 5/325) 1 tab PRN Q4HRS PRN PO MILD PAIN, 1ST CHOICE; Start 09/21/19 at 15:00 Oxycodone/ Acetaminophen (Percocet 5/325) 2 tab PRN Q4HRS PRN PO MODERATE PAIN, SEVERE PAIN; Start 09/21/19 at 15:00 Ketorolac Tromethamine (Toradol 15mg Vial) 15 mg Q6HRS IVP Last administered on 09/23/19at 06:07; Start 09/21/19 at 18:00; Stop 09/23/19 at 17:59 Ondansetron HCl (Zofran) 4 mg PRN Q6HRS PRN IV NAUSEA, 1ST CHOICE; Start 09/21/19 at 15:00 Dextrose/Lactated Ringer's 1,000 ml @ 75 mls/hr [id number] IV Last administered on 09/23/19at 01:54; Start 09/21/19 at 16:00 Sevoflurane (Ultane) 90 ml STK-MED ONCE IH ; Start 09/21/19 at 15:09; Stop 09/21/19 at 15:10; Status DC Lidocaine HCl (Lidocaine Pf 2% Vial) 5 ml STK-MED ONCE .ROUTE ; Start 09/21/19 at 15:10; Stop 09/21/19 at 15:10; Status DC Hydromorphone HCl (Dilaudid) 1.5 mg PRN Q3HRS PRN IV MOD TO SEVERE PAIN, 3rd choice Last administered on 09/21/19at 21:26; Start 09/21/19 at 16:45 Pantoprazole Sodium (PROTONIX VIAL for IV PUSH) 40 mg 1X ONCE IVP Last administered on 09/22/19at 09:58; Start 09/22/19 at 09:00; Stop 09/22/19 at 09:01; Status DC Pantoprazole Sodium (PROTONIX VIAL for IV PUSH) 40 mg DAILYAC IVP Last administered on 09/23/19at 06:07; Start 09/23/19 at 07:30 Vitals/I & O Vital Sign - Last 24 Hours 09/22/19 09/22/19 09/22/19 09/22/19 15:00 16:34 17:05 19:00 Temp 98.9 98.2 98.9 98.2 Pulse 80 75 Resp 16 18 19 18 B/P (MAP) 114/68 (83) 118/64 (82) Pulse Ox 96 96 96 98 O2 Delivery Room Air Nasal Cannula Nasal Cannula Room Air 09/22/19 09/22/19 09/22/19 09/22/19 19:50 21:02 23:00 23:11 Temp 98.4 98.4 Pulse 69 Resp 18 B/P (MAP) 118/66 (83) Pulse Ox 96 O2 Delivery Room Air Room Air Room Air Room Air 09/23/19 09/23/19 09/23/19 03:00 07:00 08:00 Temp 98.7 98.6 98.7 98.6 Pulse 73 74 Resp 18 18 B/P (MAP) 117/76 (90) 131/75 (93) Pulse Ox 96 96 O2 Delivery Room Air Room Air Room Air Intake and Output 09/22/19 09/22/19 09/23/19 15:00 23:00 07:00 Intake Total 0 ml Output Total 1120 ml Balance -1120 ml 0 ml JEAN PAYNE MD Sep 23, 2019 11:41
[2019-09-23 15:00] VITALS: BP 125/74
[2019-09-23 19:00] VITALS: BP 115/73
[2019-09-23 23:00] VITALS: BP 112/64
[2019-09-24 03:00] VITALS: BP 119/76
[2019-09-24 05:22] LABS: BASO % 1 % (0-3); EOS % 1 % (0-3); HEMATOCRIT 26.2 % (39.0-53.0); HEMOGLOBIN 8.8 g/dL (13.0-17.5); LYMPH # 1.4 x10^3/uL (1.0-4.8); LYMPH % 30 % (24-48); MEAN CORPUSCULAR HEMOGLOBIN 28 pg (25-35); MEAN CORPUSCULAR HGB CONC 34 g/dL (31-37); MEAN CORPUSCULAR VOLUME 82 fL (79-100); MONO # 0.3 x10^3/uL (0.0-1.1); MONO % 7 % (0-9); NEUT # 2.8 x10^3/uL (1.8-7.7); NEUT % 62 % (31-73); PLATELET COUNT 301 x10^3/uL (140-400); RED CELL DISTRIBUTION WIDTH 12.6 % (11.5-14.5); WHITE BLOOD COUNT 4.5 x10^3/uL (4.0-11.0)
[2019-09-24] MEDS: PANTOPRAZOLE IV PUSH 40 MG VIAL. IVP SCH (05:53)
[2019-09-24 06:19] LABS: CALCIUM 8.8 mg/dL (8.5-10.1); CREATININE 0.7 mg/dL (0.7-1.3); GFR 126.9; POTASSIUM 3.3 mmol/L (3.5-5.1)
[2019-09-24 07:00] VITALS: BP 121/70
--- NOTE | 2019-09-24 08:40 | PDOC ---
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 09/24/19 0840: SURGICAL PROGRESS NOTE Subjective + flatus no pain no nausea Vital Signs Vital Signs Date Time Temp Pulse Resp B/P (MAP) Pulse Ox O2 Delivery O2 Flow Rate FiO2 09/24/19 07:00 97.9 64 14 121/70 (87) 96 Room Air 97.9 I&O l Intake and Output 09/24/19 07:00 Intake Total 2350 ml Output Total 1850 ml Balance 500 ml Intake Oral 1350 ml IV Total 1000 ml Output Urine Total 1850 ml # Voids 4 General: Alert, Oriented X3, Cooperative, No acute distress Abdomen: Soft, Other (incision c/d/i, no erythema) Labs Laboratory Tests Test 09/24/19 04:55 White Blood Count 4.5 x10^3/uL (4.0-11.0) Red Blood Count 3.20 x10^6/uL (4.30-5.70) Hemoglobin 8.8 g/dL (13.0-17.5) Hematocrit 26.2 % (39.0-53.0) Mean Corpuscular Volume 82 fL (79-100) Mean Corpuscular Hemoglobin 28 pg (25-35) Mean Corpuscular Hemoglobin Concent 34 g/dL (31-37) Red Cell Distribution Width 12.6 % (11.5-14.5) Platelet Count 301 x10^3/uL (140-400) Neutrophils (%) (Auto) 62 % (31-73) Lymphocytes (%) (Auto) 30 % (24-48) Monocytes (%) (Auto) 7 % (0-9) Eosinophils (%) (Auto) 1 % (0-3) Basophils (%) (Auto) 1 % (0-3) Neutrophils # (Auto) 2.8 x10^3/uL (1.8-7.7) Lymphocytes # (Auto) 1.4 x10^3/uL (1.0-4.8) Monocytes # (Auto) 0.3 x10^3/uL (0.0-1.1) Eosinophils # (Auto) 0.0 x10^3/uL (0.0-0.7) Basophils # (Auto) 0.0 x10^3/uL (0.0-0.2) Sodium Level 143 mmol/L (136-145) Potassium Level 3.3 mmol/L (3.5-5.1) Chloride Level 106 mmol/L (98-107) Carbon Dioxide Level 31 mmol/L (21-32) Anion Gap 6 (6-14) Blood Urea Nitrogen 6 mg/dL (8-26) Creatinine 0.7 mg/dL (0.7-1.3) Estimated GFR (Cockcroft-Gault) 126.9 Glucose Level 106 mg/dL (70-99) Calcium Level 8.8 mg/dL (8.5-10.1) Laboratory Tests Test 09/24/19 04:55 White Blood Count 4.5 x10^3/uL (4.0-11.0) Red Blood Count 3.20 x10^6/uL (4.30-5.70) Hemoglobin 8.8 g/dL (13.0-17.5) Hematocrit 26.2 % (39.0-53.0) Mean Corpuscular Volume 82 fL (79-100) Mean Corpuscular Hemoglobin 28 pg (25-35) Mean Corpuscular Hemoglobin Concent 34 g/dL (31-37) Red Cell Distribution Width 12.6 % (11.5-14.5) Platelet Count 301 x10^3/uL (140-400) Neutrophils (%) (Auto) 62 % (31-73) Lymphocytes (%) (Auto) 30 % (24-48) Monocytes (%) (Auto) 7 % (0-9) Eosinophils (%) (Auto) 1 % (0-3) Basophils (%) (Auto) 1 % (0-3) Neutrophils # (Auto) 2.8 x10^3/uL (1.8-7.7) Lymphocytes # (Auto) 1.4 x10^3/uL (1.0-4.8) Monocytes # (Auto) 0.3 x10^3/uL (0.0-1.1) Eosinophils # (Auto) 0.0 x10^3/uL (0.0-0.7) Basophils # (Auto) 0.0 x10^3/uL (0.0-0.2) Sodium Level 143 mmol/L (136-145) Potassium Level 3.3 mmol/L (3.5-5.1) Chloride Level 106 mmol/L (98-107) Carbon Dioxide Level 31 mmol/L (21-32) Anion Gap 6 (6-14) Blood Urea Nitrogen 6 mg/dL (8-26) Creatinine 0.7 mg/dL (0.7-1.3) Estimated GFR (Cockcroft-Gault) 126.9 Glucose Level 106 mg/dL (70-99) Calcium Level 8.8 mg/dL (8.5-10.1) Problem List Problems Medical Problems: (1) Abdominal mass, left upper quadrant Status: Acute (2) Anemia Status: Acute Assessment/Plan path pending advance to full liquids RITCHIE CASTELLANOS MD 09/24/19 1020: SURGICAL PROGRESS NOTE Assessment/Plan Agree with mAy's assessment and plan. MACKENZIE JENKINS APRN Sep 24, 2019 08:40 RITCHIE CASTELLANOS MD Sep 24, 2019 10:20
--- NOTE | 2019-09-24 09:11 | PDOC ---
PROGRESS NOTES Subjective Subjective HPI - f/u of Abdominal mass ROS - post op - no fever Objective Objective Vital Signs Date Time Temp Pulse Resp B/P (MAP) Pulse Ox O2 Delivery O2 Flow Rate FiO2 09/24/19 08:55 Room Air 09/24/19 07:00 97.9 64 14 121/70 (87) 96 97.9 09/22/19 11:00 1.5 Intake and Output 09/24/19 06:59 Intake Total 2350 ml Output Total 1850 ml Balance 500 ml Intake Oral 1350 ml IV Total 1000 ml Output Urine Total 1850 ml # Voids 4 Physical Exam General: Alert, No acute distress Neuro: Normal speech Psych/Mental Status: Mental status NL Assessment Assessment Problems Medical Problems: (1) Abdominal mass, left upper quadrant Status: Acute (2) Anemia Status: Acute IMPRESSION AND PLAN: 1. Abdominal mass noted on CT scan of the abdomen and pelvis on 09/20/2019 measuring 17.5 x 11.1 x 16.6 cm. There is evidence of cystic areas for cystic necrosis within the mass. There is no evidence of retroperitoneal or pelvic lymphadenopathy. On examination, there is no evidence of testicular masses. AFP and HCG and CEA normal. There is no evidence of palpable lymphadenopathy on examination. s/p surgery 09/21/[address] Brown: Exploratory laparotomy with resection of large abdominal mass. This appeared to be generated from between the transverse colon and stomach with omentum over the top of it and the posterior aspect bordered by the mesentery of the colon. The cystic portion ruptured and there was a lot of old blood approximately a liter that was aspirated from the abdomen. There did not appear to be any specific attachment to any bowel or colon was a very small attachment to the stomach but it did not appear to involve tumor. I d/w pathology, results pending. 2. Anemia, likely due to underlying malignancy. Continue to monitor hemoglobin p.r.n. Comment Review of Relevant I have reviewed the following items amee (where applicable) has been applied. Labs Laboratory Tests Test 09/24/19 04:55 White Blood Count 4.5 x10^3/uL (4.0-11.0) Red Blood Count 3.20 x10^6/uL (4.30-5.70) Hemoglobin 8.8 g/dL (13.0-17.5) Hematocrit 26.2 % (39.0-53.0) Mean Corpuscular Volume 82 fL (79-100) Mean Corpuscular Hemoglobin 28 pg (25-35) Mean Corpuscular Hemoglobin Concent 34 g/dL (31-37) Red Cell Distribution Width 12.6 % (11.5-14.5) Platelet Count 301 x10^3/uL (140-400) Neutrophils (%) (Auto) 62 % (31-73) Lymphocytes (%) (Auto) 30 % (24-48) Monocytes (%) (Auto) 7 % (0-9) Eosinophils (%) (Auto) 1 % (0-3) Basophils (%) (Auto) 1 % (0-3) Neutrophils # (Auto) 2.8 x10^3/uL (1.8-7.7) Lymphocytes # (Auto) 1.4 x10^3/uL (1.0-4.8) Monocytes # (Auto) 0.3 x10^3/uL (0.0-1.1) Eosinophils # (Auto) 0.0 x10^3/uL (0.0-0.7) Basophils # (Auto) 0.0 x10^3/uL (0.0-0.2) Sodium Level 143 mmol/L (136-145) Potassium Level 3.3 mmol/L (3.5-5.1) Chloride Level 106 mmol/L (98-107) Carbon Dioxide Level 31 mmol/L (21-32) Anion Gap 6 (6-14) Blood Urea Nitrogen 6 mg/dL (8-26) Creatinine 0.7 mg/dL (0.7-1.3) Estimated GFR (Cockcroft-Gault) 126.9 Glucose Level 106 mg/dL (70-99) Calcium Level 8.8 mg/dL (8.5-10.1) Laboratory Tests Test 09/24/19 04:55 White Blood Count 4.5 x10^3/uL (4.0-11.0) Red Blood Count 3.20 x10^6/uL (4.30-5.70) Hemoglobin 8.8 g/dL (13.0-17.5) Hematocrit 26.2 % (39.0-53.0) Mean Corpuscular Volume 82 fL (79-100) Mean Corpuscular Hemoglobin 28 pg (25-35) Mean Corpuscular Hemoglobin Concent 34 g/dL (31-37) Red Cell Distribution Width 12.6 % (11.5-14.5) Platelet Count 301 x10^3/uL (140-400) Neutrophils (%) (Auto) 62 % (31-73) Lymphocytes (%) (Auto) 30 % (24-48) Monocytes (%) (Auto) 7 % (0-9) Eosinophils (%) (Auto) 1 % (0-3) Basophils (%) (Auto) 1 % (0-3) Neutrophils # (Auto) 2.8 x10^3/uL (1.8-7.7) Lymphocytes # (Auto) 1.4 x10^3/uL (1.0-4.8) Monocytes # (Auto) 0.3 x10^3/uL (0.0-1.1) Eosinophils # (Auto) 0.0 x10^3/uL (0.0-0.7) Basophils # (Auto) 0.0 x10^3/uL (0.0-0.2) Sodium Level 143 mmol/L (136-145) Potassium Level 3.3 mmol/L (3.5-5.1) Chloride Level 106 mmol/L (98-107) Carbon Dioxide Level 31 mmol/L (21-32) Anion Gap 6 (6-14) Blood Urea Nitrogen 6 mg/dL (8-26) Creatinine 0.7 mg/dL (0.7-1.3) Estimated GFR (Cockcroft-Gault) 126.9 Glucose Level 106 mg/dL (70-99) Calcium Level 8.8 mg/dL (8.5-10.1) Medications Current Medications Sodium Chloride 1,000 ml @ 1,000 mls/hr Q1H IV Last administered on 09/20/19at 13:00; Start 09/20/19 at 12:32; Stop 09/20/19 at 13:31; Status DC Famotidine (Pepcid Vial) 20 mg 1X ONCE IVP Last administered on 09/20/19at 13:01; Start 09/20/19 at 12:45; Stop 09/20/19 at 12:46; Status DC Ketorolac Tromethamine (Toradol 30mg Vial) 30 mg 1X ONCE IV ; Start 09/20/19 at 12:45; Stop 09/20/19 at 13:10; Status DC Fentanyl Citrate (Fentanyl 2ml Vial) 50 mcg 1X ONCE IVP Last administered on 09/20/19at 13:36; Start 09/20/19 at 13:15; Stop 09/20/19 at 13:16; Status DC Ondansetron HCl (Zofran) 4 mg PRN Q8HRS PRN IV NAUSEA/VOMITING; Start 09/20/19 at 15:00; Stop 09/20/19 at 22:00; Status DC Fentanyl Citrate (Fentanyl 2ml Vial) 50 mcg PRN Q2HRS PRN IV PAIN Last administered on 09/21/19at 02:03; Start 09/20/19 at 15:00; Stop 09/21/19 at 02:20; Status DC Sodium Chloride 1,000 ml @ 150 mls/hr Q6H40M IV Last administered on 09/21/19at 04:45; Start 09/20/19 at 15:00; Stop 09/21/19 at 14:59; Status DC Fentanyl Citrate (Fentanyl 2ml Vial) 75 mcg PRN Q2HR PRN IVP MODERATE PAIN 4-6 Last administered on 09/22/19at 21:02; Start 09/21/19 at 02:30 Fentanyl Citrate (Fentanyl 2ml Vial) 100 mcg PRN Q2HR PRN IVP SEVERE PAIN 7-10 Last administered on 09/22/19at 16:34; Start 09/21/19 at 02:30 Ondansetron HCl (Zofran) 4 mg PRN Q6HRS PRN IV NAUSEA/VOMITING; Start 09/21/19 at 10:00; Stop 09/21/19 at 18:00; Status DC Fentanyl Citrate (Fentanyl 2ml Vial) 25 mcg PRN Q5MIN PRN IV MILD PAIN 1-3; Start 09/21/19 at 10:00; Stop 09/21/19 at 18:00; Status DC Fentanyl Citrate (Fentanyl 2ml Vial) 50 mcg PRN Q5MIN PRN IV MODERATE TO SEVERE PAIN; Start 09/21/19 at 10:00; Stop 09/21/19 at 18:00; Status DC Morphine Sulfate (Morphine Sulfate) 1 mg PRN Q10MIN PRN IV SEVERE PAIN 7-10; Start 09/21/19 at 10:00; Stop 09/21/19 at 18:00; Status DC Ringer's Solution 1,000 ml @ 30 mls/hr Q24H IV Last administered on 09/21/19at 11:45; Start 09/21/19 at 09:48; Stop 09/21/19 at 21:47; Status DC Hydromorphone HCl (Dilaudid) 0.5 mg PRN Q10MIN PRN IV SEV PAIN, Second choice Last administered on 09/21/19at 16:15; Start 09/21/19 at 10:00; Stop 09/21/19 at 18:00; Status DC Prochlorperazine Edisylate (Compazine) 5 mg PACU PRN PRN IV NAUSEA, MRX1; Start 09/21/19 at 10:00; Stop 09/21/19 at 18:00; Status DC Rocuronium [place] (Zemuron) 100 mg STK-MED ONCE .ROUTE ; Start 09/21/19 at 11:45; Stop 09/21/19 at 11:45; Status DC Midazolam HCl (Versed) 2 mg STK-MED ONCE .ROUTE ; Start 09/21/19 at 11:45; Stop 09/21/19 at 11:45; Status DC Fentanyl Citrate (Fentanyl 5ml Vial) 250 mcg STK-MED ONCE .ROUTE ; Start 09/21/19 at 11:45; Stop 09/21/19 at 11:45; Status DC Ondansetron HCl (Zofran) 4 mg STK-MED ONCE .ROUTE ; Start 09/21/19 at 11:46; Stop 09/21/19 at 11:46; Status DC Lidocaine HCl (Lidocaine Pf 2% Vial) 5 ml STK-MED ONCE .ROUTE ; Start 09/21/19 at 11:46; Stop 09/21/19 at 11:46; Status DC Propofol 20 ml @ As Directed STK-MED ONCE IV ; Start 09/21/19 at 11:46; Stop 09/21/19 at 11:46; Status DC Dexamethasone Sodium Phosphate (Decadron) 20 mg STK-MED ONCE .ROUTE ; Start 09/21/19 at 11:46; Stop 09/21/19 at 11:46; Status DC Cefazolin Sodium/ Dextrose 50 ml @ 100 mls/hr 1X ONCE IV Last administered on 09/21/19at 13:40; Start 09/21/19 at 13:30; Stop 09/21/19 at 13:59; Status DC Neostigmine Methylsulfate (Neostigmine Methylsulfate) 5 mg STK-MED ONCE .ROUTE ; Start 09/21/19 at 14:37; Stop 09/21/19 at 14:37; Status DC Glycopyrrolate (Robinul) 1 mg STK-MED ONCE .ROUTE ; Start 09/21/19 at 14:37; Stop 09/21/19 at 14:37; Status DC Cefoxitin Sodium (Mefoxin) 1 gm Q8H IVP Last administered on 09/22/19at 09:57; Start 09/21/19 at 18:00; Stop 09/22/19 at 10:01; Status DC Sodium Chloride (Normal Saline Flush) 3 ml QSHIFT PRN IV AFTER MEDS AND BLOOD DRAWS; Start 09/21/19 at 15:00 Morphine Sulfate (Morphine Sulfate) 2 mg PRN Q3HRS PRN IV PAIN, 2nd CHOICE Last administered on 09/21/19at 15:37; Start 09/21/19 at 15:00 Oxycodone/ Acetaminophen (Percocet 5/325) 1 tab PRN Q4HRS PRN PO MILD PAIN, 1ST CHOICE Last administered on 09/23/19at 21:23; Start 09/21/19 at 15:00 Oxycodone/ Acetaminophen (Percocet 5/325) 2 tab PRN Q4HRS PRN PO MODERATE PAIN, SEVERE PAIN Last administered on 09/24/19at 08:55; Start 09/21/19 at 15:00 Ketorolac Tromethamine (Toradol 15mg Vial) 15 mg Q6HRS IVP Last administered on 09/23/19 06:07; Start 09/21/19 at 18:00; Stop 09/23/19 at 17:59; Status DC Ondansetron HCl (Zofran) 4 mg PRN Q6HRS PRN IV NAUSEA, 1ST CHOICE; Start 09/21/19 at 15:00 Dextrose/Lactated Ringer's 1,000 ml @ 75 mls/hr [id number] IV Last administered on 09/23/19at 21:23; Start 09/21/19 at 16:00 Sevoflurane (Ultane) 90 ml STK-MED ONCE IH ; Start 09/21/19 at 15:09; Stop 09/21/19 at 15:10; Status DC Lidocaine HCl (Lidocaine Pf 2% Vial) 5 ml STK-MED ONCE .ROUTE ; Start 09/21/19 at 15:10; Stop 09/21/19 at 15:10; Status DC Hydromorphone HCl (Dilaudid) 1.5 mg PRN Q3HRS PRN IV MOD TO SEVERE PAIN, 3rd choice Last administered on 09/21/19at 21:26; Start 09/21/19 at 16:45 Pantoprazole Sodium (PROTONIX VIAL for IV PUSH) 40 mg 1X ONCE IVP Last administered on 09/22/19at 09:58; Start 09/22/19 at 09:00; Stop 09/22/19 at 09:01; Status DC Pantoprazole Sodium (PROTONIX VIAL for IV PUSH) 40 mg DAILYAC IVP Last administered on 09/24/19at 05:53; Start 09/23/19 at 07:30 Vitals/I & O Vital Sign - Last 24 Hours 09/23/19 09/23/19 09/23/19 09/23/19 11:39 15:00 19:00 19:50 Temp 97.9 98.0 98.6 97.9 98.0 98.6 Pulse 78 68 74 Resp 18 18 16 B/P (MAP) 110/68 (82) 125/74 (91) 115/73 (87) Pulse Ox 98 96 95 O2 Delivery Room Air Room Air Room Air Room Air 09/23/19 09/23/19 09/23/19 09/24/19 21:23 22:23 23:00 03:00 Temp 98.7 98.0 98.7 98.0 Pulse 67 67 Resp 16 16 16 20 B/P (MAP) 112/64 (80) 119/76 (90) Pulse Ox 97 97 O2 Delivery Room Air Room Air Room Air Room Air 09/24/19 09/24/19 07:00 08:55 Temp 97.9 97.9 Pulse 64 Resp 14 B/P (MAP) 121/70 (87) Pulse Ox 96 O2 Delivery Room Air Room Air Intake and Output 09/23/19 09/23/19 09/24/19 14:59 22:59 06:59 Intake Total 250 ml 2000 ml 100 ml Output Total 950 ml 200 ml 700 ml Balance -700 ml 1800 ml -600 ml ASHLIE ADAM MD Sep 24, 2019 09:10
[2019-09-24 11:00] VITALS: BP 110/70
--- NOTE | 2019-09-24 11:32 | PDOC ---
[employer] PROGRESS NOTE Chief Complaint Chief Complaint Day 3 S/P exploratory laparotomy w/resection of large cystic abdominal mass Abdominal pain History of Present Illness History of Present Illness 09/24/19 Pt seen and examined Pt is talkative and in good spirits DW pt and pt's regarding wound care DW RN regarding pt's care Reviewed pt's chart Vitals/I&O Vitals/I&O: Vital Signs Date Time Temp Pulse Resp B/P (MAP) Pulse Ox O2 Delivery O2 Flow Rate FiO2 09/24/19 09:55 Room Air 09/24/19 07:00 97.9 64 14 121/70 (87) 96 97.9 I & O 09/23/19 09/23/19 09/24/19 15:00 23:00 07:00 Intake Total 250 ml 2000 ml 100 ml Output Total 950 ml 200 ml 700 ml Balance -700 ml 1800 ml -600 ml Physical Exam General: Alert, No acute distress Heart: Regular rate, Normal S1, Normal S2, No murmurs Lungs: Clear Abdomen: Soft, Other (clean, dry, intact ventral wound dressing) Extremities: No clubbing, No cyanosis Skin: No rashes, No breakdown Labs Labs: Laboratory Tests Test 09/24/19 04:55 White Blood Count 4.5 x10^3/uL (4.0-11.0) Red Blood Count 3.20 x10^6/uL (4.30-5.70) Hemoglobin 8.8 g/dL (13.0-17.5) Hematocrit 26.2 % (39.0-53.0) Mean Corpuscular Volume 82 fL (79-100) Mean Corpuscular Hemoglobin 28 pg (25-35) Mean Corpuscular Hemoglobin Concent 34 g/dL (31-37) Red Cell Distribution Width 12.6 % (11.5-14.5) Platelet Count 301 x10^3/uL (140-400) Neutrophils (%) (Auto) 62 % (31-73) Lymphocytes (%) (Auto) 30 % (24-48) Monocytes (%) (Auto) 7 % (0-9) Eosinophils (%) (Auto) 1 % (0-3) Basophils (%) (Auto) 1 % (0-3) Neutrophils # (Auto) 2.8 x10^3/uL (1.8-7.7) Lymphocytes # (Auto) 1.4 x10^3/uL (1.0-4.8) Monocytes # (Auto) 0.3 x10^3/uL (0.0-1.1) Eosinophils # (Auto) 0.0 x10^3/uL (0.0-0.7) Basophils # (Auto) 0.0 x10^3/uL (0.0-0.2) Sodium Level 143 mmol/L (136-145) Potassium Level 3.3 mmol/L (3.5-5.1) Chloride Level 106 mmol/L (98-107) Carbon Dioxide Level 31 mmol/L (21-32) Anion Gap 6 (6-14) Blood Urea Nitrogen 6 mg/dL (8-26) Creatinine 0.7 mg/dL (0.7-1.3) Estimated GFR (Cockcroft-Gault) 126.9 Glucose Level 106 mg/dL (70-99) Calcium Level 8.8 mg/dL (8.5-10.1) Review of Systems Review of Systems: Pt has no c/o headache Pt has no c/o CP Assessment and Plan Assessmemt and Plan Problems Medical Problems: (1) Abdominal mass, left upper quadrant Status: Acute (2) Anemia Status: Acute Assessment Day 3 S/P exploratory laparotomy w/resection of large cystic abdominal mass Abdominal pain Plan Wound care IV narcotics Hope to advance diet if okay with general surgery DVT prophylaxis Labs PT/OT Full code Await path report on cystic abdominal mass Comment Review of Relevant I have reviewed the following items amee (where applicable) has been applied. ANJALI CORONADO III DO Sep 24, 2019 11:32
[2019-09-24] MEDS: IV DEXTROSE 5%-LACT RINGERS 1,000 ML IV SCH (12:35)
[2019-09-24 15:00] VITALS: BP 115/73
[2019-09-24 19:43] VITALS: BP 115/73
[2019-09-24 23:16] VITALS: BP 119/74
[2019-09-25 03:31] VITALS: BP 116/77
[2019-09-25] MEDS: IV DEXTROSE 5%-LACT RINGERS 1,000 ML IV SCH (04:02)
[2019-09-25 04:53] LABS: BASO % 1 % (0-3); EOS # 0.1 x10^3/uL (0.0-0.7); EOS % 2 % (0-3); HEMATOCRIT 29.2 % (39.0-53.0); HEMOGLOBIN 9.9 g/dL (13.0-17.5); LYMPH # 1.3 x10^3/uL (1.0-4.8); LYMPH % 23 % (24-48); MEAN CORPUSCULAR HEMOGLOBIN 28 pg (25-35); MEAN CORPUSCULAR HGB CONC 34 g/dL (31-37); MEAN CORPUSCULAR VOLUME 82 fL (79-100); MONO # 0.3 x10^3/uL (0.0-1.1); MONO % 6 % (0-9); NEUT # 3.7 x10^3/uL (1.8-7.7); NEUT % 69 % (31-73); PLATELET COUNT 361 x10^3/uL (140-400); RED BLOOD COUNT 3.58 x10^6/uL (4.30-5.70); RED CELL DISTRIBUTION WIDTH 12.5 % (11.5-14.5); WHITE BLOOD COUNT 5.4 x10^3/uL (4.0-11.0)
[2019-09-25 04:54] LABS: CALCIUM 9.2 mg/dL (8.5-10.1); CREATININE 0.7 mg/dL (0.7-1.3); GFR 126.9; POTASSIUM 3.5 mmol/L (3.5-5.1)
[2019-09-25 07:00] VITALS: BP 129/84
[2019-09-25] MEDS: PANTOPRAZOLE IV PUSH 40 MG VIAL. IVP SCH (08:57)
--- NOTE | 2019-09-25 09:24 | PDOC ---
SURGICAL PROGRESS NOTE Subjective tolerating diet no n/v no pain + flatus Vital Signs Vital Signs Date Time Temp Pulse Resp B/P (MAP) Pulse Ox O2 Delivery O2 Flow Rate FiO2 09/25/19 08:00 Room Air 09/25/19 07:00 98.5 69 18 129/84 (99) 98 98.5 I&O Intake and Output 09/25/19 07:00 Intake Total 920 ml Balance 920 ml Intake Oral 920 ml # Voids 7 General: Alert, Oriented X3, Cooperative Abdomen: Soft, Other (incision c/d/i, no erythema ) Labs Laboratory Tests Test 09/24/19 04:55 09/25/19 04:20 White Blood Count 4.5 x10^3/uL (4.0-11.0) 5.4 x10^3/uL (4.0-11.0) Red Blood Count 3.20 x10^6/uL (4.30-5.70) 3.58 x10^6/uL (4.30-5.70) Hemoglobin 8.8 g/dL (13.0-17.5) 9.9 g/dL (13.0-17.5) Hematocrit 26.2 % (39.0-53.0) 29.2 % (39.0-53.0) Mean Corpuscular Volume 82 fL (79-100) 82 fL (79-100) Mean Corpuscular Hemoglobin 28 pg (25-35) 28 pg (25-35) Mean Corpuscular Hemoglobin Concent 34 g/dL (31-37) 34 g/dL (31-37) Red Cell Distribution Width 12.6 % (11.5-14.5) 12.5 % (11.5-14.5) Platelet Count 301 x10^3/uL (140-400) 361 x10^3/uL (140-400) Neutrophils (%) (Auto) 62 % (31-73) 69 % (31-73) Lymphocytes (%) (Auto) 30 % (24-48) 23 % (24-48) Monocytes (%) (Auto) 7 % (0-9) 6 % (0-9) Eosinophils (%) (Auto) 1 % (0-3) 2 % (0-3) Basophils (%) (Auto) 1 % (0-3) 1 % (0-3) Neutrophils # (Auto) 2.8 x10^3/uL (1.8-7.7) 3.7 x10^3/uL (1.8-7.7) Lymphocytes # (Auto) 1.4 x10^3/uL (1.0-4.8) 1.3 x10^3/uL (1.0-4.8) Monocytes # (Auto) 0.3 x10^3/uL (0.0-1.1) 0.3 x10^3/uL (0.0-1.1) Eosinophils # (Auto) 0.0 x10^3/uL (0.0-0.7) 0.1 x10^3/uL (0.0-0.7) Basophils # (Auto) 0.0 x10^3/uL (0.0-0.2) 0.0 x10^3/uL (0.0-0.2) Sodium Level 143 mmol/L (136-145) 144 mmol/L (136-145) Potassium Level 3.3 mmol/L (3.5-5.1) 3.5 mmol/L (3.5-5.1) Chloride Level 106 mmol/L (98-107) 106 mmol/L (98-107) Carbon Dioxide Level 31 mmol/L (21-32) 31 mmol/L (21-32) Anion Gap 6 (6-14) 7 (6-14) Blood Urea Nitrogen 6 mg/dL (8-26) 5 mg/dL (8-26) Creatinine 0.7 mg/dL (0.7-1.3) 0.7 mg/dL (0.7-1.3) Estimated GFR (Cockcroft-Gault) 126.9 126.9 Glucose Level 106 mg/dL (70-99) 111 mg/dL (70-99) Calcium Level 8.8 mg/dL (8.5-10.1) 9.2 mg/dL (8.5-10.1) Laboratory Tests Test 09/25/19 04:20 White Blood Count 5.4 x10^3/uL (4.0-11.0) Red Blood Count 3.58 x10^6/uL (4.30-5.70) Hemoglobin 9.9 g/dL (13.0-17.5) Hematocrit 29.2 % (39.0-53.0) Mean Corpuscular Volume 82 fL (79-100) Mean Corpuscular Hemoglobin 28 pg (25-35) Mean Corpuscular Hemoglobin Concent 34 g/dL (31-37) Red Cell Distribution Width 12.5 % (11.5-14.5) Platelet Count 361 x10^3/uL (140-400) Neutrophils (%) (Auto) 69 % (31-73) Lymphocytes (%) (Auto) 23 % (24-48) Monocytes (%) (Auto) 6 % (0-9) Eosinophils (%) (Auto) 2 % (0-3) Basophils (%) (Auto) 1 % (0-3) Neutrophils # (Auto) 3.7 x10^3/uL (1.8-7.7) Lymphocytes # (Auto) 1.3 x10^3/uL (1.0-4.8) Monocytes # (Auto) 0.3 x10^3/uL (0.0-1.1) Eosinophils # (Auto) 0.1 x10^3/uL (0.0-0.7) Basophils # (Auto) 0.0 x10^3/uL (0.0-0.2) Sodium Level 144 mmol/L (136-145) Potassium Level 3.5 mmol/L (3.5-5.1) Chloride Level 106 mmol/L (98-107) Carbon Dioxide Level 31 mmol/L (21-32) Anion Gap 7 (6-14) Blood Urea Nitrogen 5 mg/dL (8-26) Creatinine 0.7 mg/dL (0.7-1.3) Estimated GFR (Cockcroft-Gault) 126.9 Glucose Level 111 mg/dL (70-99) Calcium Level 9.2 mg/dL (8.5-10.1) Problem List Problems Medical Problems: (1) Abdominal mass, left upper quadrant Status: Acute (2) Anemia Status: Acute Assessment/Plan xlap, mass excision soft diet, dc ivf ok to shower d/w Nicolasa, await path prior to dc MACKENZIE JENKINS APRN Sep 25, 2019 09:24
--- NOTE | 2019-09-25 10:24 | PDOC ---
Subjective: Subjective: Eating some, passing gas, no stool. Objective: Vital Signs: Vital Signs Date Time Temp Pulse Resp B/P (MAP) Pulse Ox O2 Delivery O2 Flow Rate FiO2 09/25/19 08:00 Room Air 09/25/19 07:00 98.5 69 18 129/84 (99) 98 98.5 Labs: Laboratory Tests Test 09/25/19 04:20 White Blood Count 5.4 x10^3/uL Red Blood Count 3.58 x10^6/uL Hemoglobin 9.9 g/dL Hematocrit 29.2 % Mean Corpuscular Volume 82 fL Mean Corpuscular Hemoglobin 28 pg Mean Corpuscular Hemoglobin Concent 34 g/dL Red Cell Distribution Width 12.5 % Platelet Count 361 x10^3/uL Neutrophils (%) (Auto) 69 % Lymphocytes (%) (Auto) 23 % Monocytes (%) (Auto) 6 % Eosinophils (%) (Auto) 2 % Basophils (%) (Auto) 1 % Neutrophils # (Auto) 3.7 x10^3/uL Lymphocytes # (Auto) 1.3 x10^3/uL Monocytes # (Auto) 0.3 x10^3/uL Eosinophils # (Auto) 0.1 x10^3/uL Basophils # (Auto) 0.0 x10^3/uL Sodium Level 144 mmol/L Potassium Level 3.5 mmol/L Chloride Level 106 mmol/L Carbon Dioxide Level 31 mmol/L Anion Gap 7 Blood Urea Nitrogen 5 mg/dL Creatinine 0.7 mg/dL Estimated GFR (Cockcroft-Gault) 126.9 Glucose Level 111 mg/dL Calcium Level 9.2 mg/dL PE: GEN: NAD LUNGS: CTAB HEART: RRR ABD: quiet BS, soft NEURO/PSYCH: A & O 3 - speaks Japanese A/P: S/p exploratory laparotomy w/ resection of large abdominal mass -- Awaiting path. KEVIN WILSON Sep 25, 2019 10:24
[2019-09-25 11:00] VITALS: BP 110/63
[2019-09-25] MEDS ORDERED: TRAM-48 PO (12:24)
[2019-09-25 15:00] VITALS: BP 109/69
--- NOTE | 2019-09-25 15:55 | PDOC ---
PROGRESS NOTES Subjective Subjective HPI - f/u of Abdominal mass ROS - no abd pain Objective Objective Vital Signs Date Time Temp Pulse Resp B/P (MAP) Pulse Ox O2 Delivery O2 Flow Rate FiO2 09/25/19 11:00 97.9 61 18 110/63 (79) 98 Room Air 97.9 09/22/19 11:00 1.5 Intake and Output 09/25/19 07:00 Intake Total 920 ml Balance 920 ml Intake Oral 920 ml # Voids 7 Physical Exam Heart: Normal S1, Normal S2 General: Alert, Oriented X3 Lungs: Clear to auscultation Neuro: Normal speech Psych/Mental Status: Mental status NL Assessment Assessment Problems Medical Problems: (1) Abdominal mass, left upper quadrant Status: Acute (2) Anemia Status: Acute IMPRESSION AND PLAN: 1. Abdominal mass noted on CT scan of the abdomen and pelvis on 09/20/2019 measuring 17.5 x 11.1 x 16.6 cm. There is evidence of cystic areas for cystic necrosis within the mass. There is no evidence of retroperitoneal or pelvic lymphadenopathy. On examination, there is no evidence of testicular masses. AFP and HCG and CEA normal. There is no evidence of palpable lymphadenopathy on examination. s/p surgery 09/21/[address] Brown: Exploratory laparotomy with resection of large abdominal mass. This appeared to be generated from between the transverse colon and stomach with omentum over the top of it and the posterior aspect bordered by the mesentery of the colon. The cystic portion ruptured and there was a lot of old blood approximately a liter that was aspirated from the abdomen. There did not appear to be any specific attachment to any bowel or colon was a very small attachment to the stomach but it did not appear to involve tumor. 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 2. Anemia, likely due to underlying malignancy. Continue to monitor hemoglobin p.r.n. Comment Review of Relevant I have reviewed the following items amee (where applicable) has been applied. Labs Laboratory Tests Test 09/24/19 04:55 09/25/19 04:20 White Blood Count 4.5 x10^3/uL (4.0-11.0) 5.4 x10^3/uL (4.0-11.0) Red Blood Count 3.20 x10^6/uL (4.30-5.70) 3.58 x10^6/uL (4.30-5.70) Hemoglobin 8.8 g/dL (13.0-17.5) 9.9 g/dL (13.0-17.5) Hematocrit 26.2 % (39.0-53.0) 29.2 % (39.0-53.0) Mean Corpuscular Volume 82 fL (79-100) 82 fL (79-100) Mean Corpuscular Hemoglobin 28 pg (25-35) 28 pg (25-35) Mean Corpuscular Hemoglobin Concent 34 g/dL (31-37) 34 g/dL (31-37) Red Cell Distribution Width 12.6 % (11.5-14.5) 12.5 % (11.5-14.5) Platelet Count 301 x10^3/uL (140-400) 361 x10^3/uL (140-400) Neutrophils (%) (Auto) 62 % (31-73) 69 % (31-73) Lymphocytes (%) (Auto) 30 % (24-48) 23 % (24-48) Monocytes (%) (Auto) 7 % (0-9) 6 % (0-9) Eosinophils (%) (Auto) 1 % (0-3) 2 % (0-3) Basophils (%) (Auto) 1 % (0-3) 1 % (0-3) Neutrophils # (Auto) 2.8 x10^3/uL (1.8-7.7) 3.7 x10^3/uL (1.8-7.7) Lymphocytes # (Auto) 1.4 x10^3/uL (1.0-4.8) 1.3 x10^3/uL (1.0-4.8) Monocytes # (Auto) 0.3 x10^3/uL (0.0-1.1) 0.3 x10^3/uL (0.0-1.1) Eosinophils # (Auto) 0.0 x10^3/uL (0.0-0.7) 0.1 x10^3/uL (0.0-0.7) Basophils # (Auto) 0.0 x10^3/uL (0.0-0.2) 0.0 x10^3/uL (0.0-0.2) Sodium Level 143 mmol/L (136-145) 144 mmol/L (136-145) Potassium Level 3.3 mmol/L (3.5-5.1) 3.5 mmol/L (3.5-5.1) Chloride Level 106 mmol/L (98-107) 106 mmol/L (98-107) Carbon Dioxide Level 31 mmol/L (21-32) 31 mmol/L (21-32) Anion Gap 6 (6-14) 7 (6-14) Blood Urea Nitrogen 6 mg/dL (8-26) 5 mg/dL (8-26) Creatinine 0.7 mg/dL (0.7-1.3) 0.7 mg/dL (0.7-1.3) Estimated GFR (Cockcroft-Gault) 126.9 126.9 Glucose Level 106 mg/dL (70-99) 111 mg/dL (70-99) Calcium Level 8.8 mg/dL (8.5-10.1) 9.2 mg/dL (8.5-10.1) Laboratory Tests Test 09/25/19 04:20 White Blood Count 5.4 x10^3/uL (4.0-11.0) Red Blood Count 3.58 x10^6/uL (4.30-5.70) Hemoglobin 9.9 g/dL (13.0-17.5) Hematocrit 29.2 % (39.0-53.0) Mean Corpuscular Volume 82 fL (79-100) Mean Corpuscular Hemoglobin 28 pg (25-35) Mean Corpuscular Hemoglobin Concent 34 g/dL (31-37) Red Cell Distribution Width 12.5 % (11.5-14.5) Platelet Count 361 x10^3/uL (140-400) Neutrophils (%) (Auto) 69 % (31-73) Lymphocytes (%) (Auto) 23 % (24-48) Monocytes (%) (Auto) 6 % (0-9) Eosinophils (%) (Auto) 2 % (0-3) Basophils (%) (Auto) 1 % (0-3) Neutrophils # (Auto) 3.7 x10^3/uL (1.8-7.7) Lymphocytes # (Auto) 1.3 x10^3/uL (1.0-4.8) Monocytes # (Auto) 0.3 x10^3/uL (0.0-1.1) Eosinophils # (Auto) 0.1 x10^3/uL (0.0-0.7) Basophils # (Auto) 0.0 x10^3/uL (0.0-0.2) Sodium Level 144 mmol/L (136-145) Potassium Level 3.5 mmol/L (3.5-5.1) Chloride Level 106 mmol/L (98-107) Carbon Dioxide Level 31 mmol/L (21-32) Anion Gap 7 (6-14) Blood Urea Nitrogen 5 mg/dL (8-26) Creatinine 0.7 mg/dL (0.7-1.3) Estimated GFR (Cockcroft-Gault) 126.9 Glucose Level 111 mg/dL (70-99) Calcium Level 9.2 mg/dL (8.5-10.1) Medications Current Medications Sodium Chloride 1,000 ml @ 1,000 mls/hr Q1H IV Last administered on 09/20/19at 13:00; Start 09/20/19 at 12:32; Stop 09/20/19 at 13:31; Status DC Famotidine (Pepcid Vial) 20 mg 1X ONCE IVP Last administered on 09/20/19at 13:01; Start 09/20/19 at 12:45; Stop 09/20/19 at 12:46; Status DC Ketorolac Tromethamine (Toradol 30mg Vial) 30 mg 1X ONCE IV ; Start 09/20/19 at 12:45; Stop 09/20/19 at 13:10; Status DC Fentanyl Citrate (Fentanyl 2ml Vial) 50 mcg 1X ONCE IVP Last administered on 09/20/19at 13:36; Start 09/20/19 at 13:15; Stop 09/20/19 at 13:16; Status DC Ondansetron HCl (Zofran) 4 mg PRN Q8HRS PRN IV NAUSEA/VOMITING; Start 09/20/19 at 15:00; Stop 09/20/19 at 22:00; Status DC Fentanyl Citrate (Fentanyl 2ml Vial) 50 mcg PRN Q2HRS PRN IV PAIN Last administered on 09/21/19at 02:03; Start 09/20/19 at 15:00; Stop 09/21/19 at 02:20; Status DC Sodium Chloride 1,000 ml @ 150 mls/hr Q6H40M IV Last administered on 09/21/19at 04:45; Start 09/20/19 at 15:00; Stop 09/21/19 at 14:59; Status DC Fentanyl Citrate (Fentanyl 2ml Vial) 75 mcg PRN Q2HR PRN IVP MODERATE PAIN 4-6 Last administered on 09/22/19at 21:02; Start 09/21/19 at 02:30 Fentanyl Citrate (Fentanyl 2ml Vial) 100 mcg PRN Q2HR PRN IVP SEVERE PAIN 7-10 Last administered on 09/22/19at 16:34; Start 09/21/19 at 02:30 Ondansetron HCl (Zofran) 4 mg PRN Q6HRS PRN IV NAUSEA/VOMITING; Start 09/21/19 at 10:00; Stop 09/21/19 at 18:00; Status DC Fentanyl Citrate (Fentanyl 2ml Vial) 25 mcg PRN Q5MIN PRN IV MILD PAIN 1-3; Start 09/21/19 at 10:00; Stop 09/21/19 at 18:00; Status DC Fentanyl Citrate (Fentanyl 2ml Vial) 50 mcg PRN Q5MIN PRN IV MODERATE TO SEVERE PAIN; Start 09/21/19 at 10:00; Stop 09/21/19 at 18:00; Status DC Morphine Sulfate (Morphine Sulfate) 1 mg PRN Q10MIN PRN IV SEVERE PAIN 7-10; Start 09/21/19 at 10:00; Stop 09/21/19 at 18:00; Status DC Ringer's Solution 1,000 ml @ 30 mls/hr Q24H IV Last administered on 09/21/19at 11:45; Start 09/21/19 at 09:48; Stop 09/21/19 at 21:47; Status DC Hydromorphone HCl (Dilaudid) 0.5 mg PRN Q10MIN PRN IV SEV PAIN, Second choice Last administered on 09/21/19at 16:15; Start 09/21/19 at 10:00; Stop 09/21/19 at 18:00; Status DC Prochlorperazine Edisylate (Compazine) 5 mg PACU PRN PRN IV NAUSEA, MRX1; Start 09/21/19 at 10:00; Stop 09/21/19 at 18:00; Status DC Rocuronium Ronda (Zemuron) 100 mg STK-MED ONCE .ROUTE ; Start 09/21/19 at 11 :45; Stop 09/21/19 at 11:45; Status DC Midazolam HCl (Versed) 2 mg STK-MED ONCE .ROUTE ; Start 09/21/19 at 11:45; Stop 09/21/19 at 11:45; Status DC Fentanyl Citrate (Fentanyl 5ml Vial) 250 mcg STK-MED ONCE .ROUTE ; Start 09/21/19 at 11:45; Stop 09/21/19 at 11:45; Status DC Ondansetron HCl (Zofran) 4 mg STK-MED ONCE .ROUTE ; Start 09/21/19 at 11:46; Stop 09/21/19 at 11:46; Status DC Lidocaine HCl (Lidocaine Pf 2% Vial) 5 ml STK-MED ONCE .ROUTE ; Start 09/21/19 at 11:46; Stop 09/21/19 at 11:46; Status DC Propofol 20 ml @ As Directed STK-MED ONCE IV ; Start 09/21/19 at 11:46; Stop 09/21/19 at 11:46; Status DC Dexamethasone Sodium Phosphate (Decadron) 20 mg STK-MED ONCE .ROUTE ; Start 09/21/19 at 11:46; Stop 09/21/19 at 11:46; Status DC Cefazolin Sodium/ Dextrose 50 ml @ 100 mls/hr 1X ONCE IV Last administered on 09/21/19at 13:40; Start 09/21/19 at 13:30; Stop 09/21/19 at 13:59; Status DC Neostigmine Methylsulfate (Neostigmine Methylsulfate) 5 mg STK-MED ONCE .ROUTE ; Start 09/21/19 at 14:37; Stop 09/21/19 at 14:37; Status DC Glycopyrrolate (Robinul) 1 mg STK-MED ONCE .ROUTE ; Start 09/21/19 at 14:37; Stop 09/21/19 at 14:37; Status DC Cefoxitin Sodium (Mefoxin) 1 gm Q8H IVP Last administered on 09/22/19at 09:57; Start 09/21/19 at 18:00; Stop 09/22/19 at 10:01; Status DC Sodium Chloride (Normal Saline Flush) 3 ml QSHIFT PRN IV AFTER MEDS AND BLOOD DRAWS; Start 09/21/19 at 15:00 Morphine Sulfate (Morphine Sulfate) 2 mg PRN Q3HRS PRN IV PAIN, 2nd CHOICE IV Last administered on 09/21/19at 15:37; Start 09/21/19 at 15:00 Oxycodone/ Acetaminophen (Percocet 5/325) 1 tab PRN Q4HRS PRN PO MILD PAIN, 1ST CHOICE Last administered on 09/23/19at 21:23; Start 09/21/19 at 15:00 Oxycodone/ Acetaminophen (Percocet 5/325) 2 tab PRN Q4HRS PRN PO MODERATE PAIN, SEVERE PAIN Last administered on 09/24/19at 08:55; Start 09/21/19 at 15:00 Ketorolac Tromethamine (Toradol 15mg Vial) 15 mg Q6HRS IVP Last administered on 09/23/19at 06:07; Start 09/21/19 at 18:00; Stop 09/23/19 at 17:59; Status DC Ondansetron HCl (Zofran) 4 mg PRN Q6HRS PRN IV NAUSEA, 1ST CHOICE; Start 09/21/19 at 15:00 Dextrose/Lactated Ringer's 1,000 ml @ 75 mls/hr [id number] IV Last administered on 09/25/19at 04:02; Start 09/21/19 at 16:00; Stop 09/25/19 at 09:23; Status DC Sevoflurane (Ultane) 90 ml STK-MED ONCE IH ; Start 09/21/19 at 15:09; Stop 09/21/19 at 15:10; Status DC Lidocaine HCl (Lidocaine Pf 2% Vial) 5 ml STK-MED ONCE .ROUTE ; Start 09/21/19 at 15:10; Stop 09/21/19 at 15:10; Status DC Hydromorphone HCl (Dilaudid) 1.5 mg PRN Q3HRS PRN IV MOD TO SEVERE PAIN, 3rd choice Last administered on 09/21/19at 21:26; Start 09/21/19 at 16:45 Pantoprazole Sodium (PROTONIX VIAL for IV PUSH) 40 mg 1X ONCE IVP Last administered on 09/22/19at 09:58; Start 09/22/19 at 09:00; Stop 09/22/19 at 09:01; Status DC Pantoprazole Sodium (PROTONIX VIAL for IV PUSH) 40 mg DAILYAC IVP Last administered on 09/25/19at 08:57; Start 09/23/19 at 07:30 Active Scripts Active Ultram (Tramadol Hcl) 50 Mg Tablet 1 Tab PO PRN TID PRN MDD 3 Tablet(s) Vitals/I & O Vital Sign - Last 24 Hours 09/24/19 09/24/19 09/24/19 09/24/19 15:00 19:43 20:00 23:16 Temp 97.7 97.9 98.0 97.7 97.9 98.0 Pulse 66 58 64 Resp 16 18 18 B/P (MAP) 115/73 (87) 115/73 (87) 119/74 (89) Pulse Ox 98 98 98 O2 Delivery Room Air Room Air Room Air Room Air 09/25/19 09/25/19 09/25/19 09/25/19 03:31 07:00 08:00 11:00 Temp 98.6 98.5 97.9 98.6 98.5 97.9 Pulse 66 69 61 Resp 18 18 18 B/P (MAP) 116/77 (90) 129/84 (99) 110/63 (79) Pulse Ox 98 98 98 O2 Delivery Room Air Room Air Room Air Room Air Intake and Output 09/24/19 09/24/19 09/25/19 15:00 23:00 07:00 Intake Total 420 ml 300 ml 200 ml Balance 420 ml 300 ml 200 ml ASHLIE ADAM MD Sep 25, 2019 15:55
--- NOTE | 2019-09-25 18:24 | NUR ---
pt is discharged home with self care at [id number] via wheelchair via [facility] Plunkett. pt is in stable condition. pt has all belongings with him. pt received discharge instructions and prescriptions and stated he had no further questions for me.
== END 2019-09-25 16:57 | disposition home or self-care (01) | DRG 358 ==
LOC: ER 11:03 → 4 NORTH 13:54
PROVIDERS: ADMIT Internal Medicine; ATTEND Internal Medicine
PROC: 0WBH0ZZ Excision of Retroperitoneum, Open Approach (ICD-10-PCS; principal; 2019-09-21 14:30)
DX: R19.00 Intra-abdominal and pelvic swelling, mass and lump, unspecified site (principal); D63.0 Anemia in neoplastic disease; E66.9 Obesity, unspecified; E86.0 Dehydration; Z68.30 Body mass index [BMI] 30.0-30.9, adult
CPT/HCPCS: 36415; 74176; 80048; 80053; 81001; 82105; 82378; 83690; 84702; 85014; 85018; 85025; 86704; 86850; 86900; 86901; 86920; 87340; 96361; 96374; A7015; C1769; C9113; J0694; J0696; J1100; J1170; J1885; J2001; J2250; J2270; J2405; J2704; J2710; J3010; J3490; J7030; J7120; 84704; 99285-25; G0378